=== PATIENT | female | born 1950 | race Caucasian/White ===

== ENCOUNTER 2021-10-29 10:34 | Outpatient (CLI) | payer MEDICARE, SELFPAY ==
--- NOTE | ~2021-10-29 | XR_ITS ---
XR shoulder LT min 2V DATE: 10/29/2021 10:51 INDICATION: Left shoulder pain. Limited range of motion. No injury. TECHNIQUE: 4 views COMPARISON: None FINDINGS: There is diffuse osteopenia. No fracture or dislocation, periosteal reaction or bone destruction. Mild degenerative spurring at the left acromioclavicular joint. Degenerative spurring of the thoracic spine. Aortic arch calcification. IMPRESSION: Osteopenia Mild degenerative change of the left acromioclavicular joint Reviewed, dictated and finalized at location A.
== END 2021-10-29 10:35 | disposition home or self-care (01) ==
PROVIDERS: PCP Internal Medicine; Visit Provider Internal Medicine
DX: M19.012 Primary osteoarthritis, left shoulder (principal)
CPT/HCPCS: 73030

== ENCOUNTER 2021-11-01 10:09 | Observation (INO) | payer MEDICARE, SELFPAY ==
[2021-11-01] VITALS (16 sets, daily range): BP systolic 115–162; BP diastolic 51–95; PULSE 55–85; RESP 15–20; TEMP 36.1–36.9; O2SAT 97–100; BMI 30.2
--- NOTE | ~2021-11-01 | XR_ITS ---
EXAMINATION: XR chest 2V DATE: 11/01/2021 10:37 INDICATION: Left chest pain. TECHNIQUE: Frontal and lateral views of the chest were obtained. COMPARISON: Chest 2 views 01/03/2015, CT abdomen and pelvis 11/16/2018 FINDINGS: The chest demonstrates clear lungs without pneumonia, pleural effusion, or pneumothorax. Th e heart size is normal. There are prominent paracardial fat pads. Surgical clips in the right upper q uadrant are likely from cholecystectomy. IMPRESSION: 1. No acute cardiopulmonary disease. Reviewed, dictated and finalized at location A.
--- NOTE | 2021-11-01 10:10 | ECG_ITS ---
Measurements Intervals [place] Rate: 65 P: -78 HI: 120 QRS: 6 QRSD: 99 T: 122 QT: 449 QTc: 469 Interpretive Statements BASELINE ARTIFACT RESULTS IN DIFFICULT INTERPRETATION SINUS RHYTHM ST DEVIATION AND MODERATE T-WAVE ABNORMALITY, CONSIDER ANTEROLATERAL ISCHEMIA [-0.1+ mV T WAVE IN V3-V6] COMPARED TO ECG 10/14/2018 08:47:17 T-WAVE INVERSION IS NOTED Electronically Signed On 11-01-2021 12:51:48 CDT by Greg Yoder M.D.
[2021-11-01] MEDS: ASPIRIN 81 MG CHEWABLE TABLET 324 MG PO (10:25)
[2021-11-01 10:29] LABS: Basophils Absolute Auto 0.1 K/mm3 (0.0-0.1); Basophils Percent Auto 0.9 % (0.2-1.2); Eosinophils Absolute Auto 0.1 K/mm3 (0-0.3); Eosinophils Percent Auto 1.5 % (0-4.4); Hematocrit 40.5 % (37.0-47.0); Immature Granulocyte Absolute 0.03 K/mm3 (0.00-0.031); Immature Granulocyte Percent A 0.3 % (0-0.5); Lymphocytes Absolute Auto 4.76 K/mm3 (0.9-3.2); Lymphocytes Percent Auto 51.3 % (18.3-44.2); Mean Corpuscular HGB Conc 32.1 g/dl (32-36); Mean Corpuscular Hemoglobin 28.4 pg (26-34); Mean Corpuscular Volume 88.6 fl (80-100); Mean Platelet Volume 10.7 fl (7.4-10.4); Monocytes Absolute Auto 0.8 K/mm3 (0.1-0.6); Monocytes Percent Auto 9.1 % (2.6-8.5); Neutrophils Absolute Auto 3.4 K/mm3 (1.3-6.7); Neutrophils Percent Auto 36.9 % (45.5-73.1); Platelet Count Result 312 k/mm3 (150-375); Red Blood Count 4.57 M/mm3 (4.2-5.4); Red Cell Distribution Width 13.6 % (11.5-14.5); White Blood Count 9.3 K/mm3 (4.5-10.0)
[2021-11-01 10:40] LABS: Alanine Aminotransferase 28 U/L (4-35); Albumin Level 3.7 g/dL (3.5-5.1); Alkaline Phosphatase 53 U/L (38-126); Anion Gap 11 mmol/L (8-16); Aspartate Amino Transferase 43 U/L (14-36); Bilirubin,Total 0.4 mg/dL (0.2-1.3); Blood Urea Nitrogen 11 mg/dL (7-17); Carbon Dioxide 22 mmol/L (22-30); Chloride 104 mmol/L (98-107); Estimated CRCL calculation 67 ml/min; Estimated Glomerular Filt Rate > 60; Glucose 269 mg/dL (65-110); Lipase 127 U/L (23-300); Potassium 3.5 mmol/L (3.4-5.0); Sodium 137 mmol/L (137-145)
[2021-11-01 10:41] LABS: INR 1.1; Prothrombin Time 13.5 Seconds (11.1-14.7)
[2021-11-01 10:42] LABS: Partial Thromboplastin Time 23.3 SECONDS (22.3-36.8)
[2021-11-01 10:54] LABS: Troponin I 0.083 ng/mL (0.000-0.034)
--- NOTE | 2021-11-01 11:23 | ED.CHESTPAIN ---
HPI - Chest Pain General Chief Complaint: Chest Pain Stated Complaint: chest pain Time Seen by Provider: 11/01/21 10:45 Source: patient Mode of arrival: ambulatory Limitations: no limitations History of Present Illness HPI narrative: Patient is a 70-year-old female complaining of chest pain, left chest, tightness, was 7 out of 10 earlier, currently has no pain, radiating to left arm, intermittent, accompanied by nausea started 2 weeks ago. Patient denies any shortness of breath, abdominal pain, vomiting, diaphoresis, fever or chills. Related Data Home Medications Medication Instructions Recorded Confirmed propranolol 10 mg tablet 20 mg PO Q12H tablet 09/08/19 11/01/21 venlafaxine 75 mg capsule,extended 75 mg PO TID cap 09/08/19 11/01/21 release 24 hr bupropion HCl 300 mg 24 hr tablet, 300 mg PO QAM 11/28/20 11/01/21 extended release oxybutynin chloride 10 mg 10 mg PO DAILY 11/28/20 11/01/21 tablet,extended release 24 hr Allergies Allergy/AdvReac Type Severity Reaction Status Date / Time No Known Allergies Allergy Verified 11/01/21 09:36 Review of Systems Review of Systems: All systems reviewed & are unremarkable except as noted in HPI and below Constitutional: Constitutional: Denies body ache(s), Denies chills, Denies excessive sweating, Denies fatigue, Denies fever(s), Denies headache(s), Denies lethargy, Denies malaise, Denies weakness and Denies weight loss Eyes: Eyes: Denies blurry vision, Denies change in vision and Denies loss of vision ENT: Denies dizziness, Denies ear discharge, Denies headache(s), Denies lip swelling, Denies epistaxis, Denies nasal congestion, Denies neck pain, Denies throat swelling and Denies tongue swelling Cardiovascular: Cardiovascular: Denies diaphoresis, Denies rapid heart rate, Denies edema, Denies irregular heart rhythm, Denies lightheadedness, Denies palpitations, Denies dyspnea and Denies dyspnea on exertion Respiratory: Respiratory: Denies chest congestion, Denies cough, Denies hemoptysis, Denies dyspnea and Denies dyspnea on exertion Gastrointestinal: Gastrointestinal: Denies abdominal pain, Denies melena, Denies hematochezia, Denies diarrhea, Denies nausea, Denies vomiting and Denies hematemesis Musculoskeletal: Musculoskeletal: Denies abnormal gait, Denies deformity, Denies joint swelling, Denies limited range of motion, Denies neck pain and Denies numbness Neurologic: Denies Abnormal speech present, Denies abnormal gait, Denies confusion, Denies dizziness, Denies headache(s), Denies focal weakness, Denies loss of vision, Denies numbness, Denies Other visual disturbances, Denies Sensory deficit (Neuro) and Denies weakness Psychiatric: Psychiatric: Denies confusion, Denies depression, Denies auditory hallucinations, Denies homicidal ideation and Denies suicidal ideation Endocrine: Endocrine: Denies cold intolerance, Denies excessive sweating, Denies fatigue, Denies heat intolerance and Denies palpitations Hematologic/Lymphatic: Hematologic/Lymphatic: Denies easy bleeding and Denies easy bruising Allergic/Immunologic: Allergic/Immunologic: Denies lip swelling, Denies throat swelling and Denies tongue swelling PMFSH Surgical History Surgical History H/O cataract removal with insertion of prosthetic lens Family History Family History Mother Patient's mother is Family history of malignant neoplasm Father Patient's father is Social History Social History Smoking packs per day: 2 Smoking cigarettes per day: 40.0 Years smoked: 20 Smoking pack-years: 40.00 Smoking status: Never smoker Smoking end date: 07/06/06 Alcohol intake: never Comments Past medical history: Diabetes Exam Const: General: cooperative, healthy appearing, comfortable, no acute distress
[2021-11-01 13:40] LABS: Troponin I 0.077 ng/mL (0.000-0.034)
[2021-11-01 13:41] LABS: SARS-CoV-2 RNA PCR Negative
--- NOTE | 2021-11-01 14:00 | PM.IMHP ---
H&P: HPI History of Present Illness Date/Time: 11/01/21 14:00 <Nati Bishop PA-C - Last Filed: 11/01/21 17:24> Chief Complaint: Chest pain. <Nati Bishop PA-C - Last Filed: 11/01/21 17:24> Narrative: This is a 70-year-old female with history of kidney stones, GERD, diabetes, hypothyroidism, and essential tremor who presented to the emergency department for evaluation of chest pain. She saw her primary care provider today for evaluation of left shoulder pain that has been an ongoing issue for about a year's time though it has gotten worse over the past couple of weeks. She has a difficult time describing what she feels and simply refers to it as ?pain.? This pain seems to start in the left shoulder and at times it radiates down the left arm and hand and occasionally to the left scapula and left anterior chest. More recently the pain seems to occur when I am up and about? and at times it is accompanied by dizziness and nausea. It is not necessarily improved with rest however she did take an old narcotic that was prescribed a couple of years ago which seemed to help. Her primary care provider sent her to the ER today given her risk factors where she was found to have a slightly elevated troponin which has remained flat. EKG showed T-wave inversion in the anterolateral leads and she is being admitted in this setting. She has no known history of coronary artery disease and believes it has been over 5 years since her last stress test which was reportedly unremarkable. At the time my evaluation she has no current chest pain or complaints. <Nati Bishop PA-C - Last Filed: 11/01/21 17:24> Review of Systems Review of Systems: Twelve systems were reviewed. No fever, chills, or sweats. She denies cold and flu symptoms. No vertigo. No sick contacts. No pleuritic pain or palpitations. No orthopnea, paroxysmal nocturnal dyspnea, or lower extremity edema. She frequently has nausea and vomiting with suspected gastroparesis for which she has been seen by GI extensively. She admits that she does not check her glucose at home and there has been some documentation question her compliance with her medications as well. No blurry vision, polydipsia, or polyuria. She denies recent fall and injury. Except as documented, all other systems were reviewed and are negative. <Nati Bishop PA-C - Last Filed: 11/01/21 17:24> [facility] Past Medical History Medical History: Medical History (Updated 11/01/21 @ 17:22 by Nati Bishop PA-C) Chronic nausea Depression Essential tremor Gastro-esophageal reflux disease without esophagitis Gastroparesis History of colon polyps Hypothyroidism MRSA infection Other hyperlipidemia Type 2 diabetes mellitus Vitamin D deficiency, unspecified <Nati Bishop PA-C - Last Filed: 11/01/21 17:24> Surgical History Surgical History: Surgical History (Updated 11/01/21 @ 13:17 by Nati Bishop PA-C) History of cataract extraction with lens replacement History of cholecystectomy History of colonoscopy Diverticular disease noted in 2010. Benign colon polyps in 2018. History of esophagogastroduodenoscopy Hiatal hernia, gastritis, multiple fundic polyps. History of hernia repair (10/2018) Incarcerated ventral hernia repair with mesh. History of tubal ligation <Nati Bishop PA-C - Last Filed: 11/01/21 17:24> Family History Family History: Family History Mother Family history of malignant neoplasm Patient's mother is Father Patient's father is Cerebrovascular accident Asthma History of blood clots Diabetes mellitus <Nati Bishop PA-C - Last Filed: 11/01/21 17:24> Social History Social History: Social History (Updated 11/01/21 @ 17:17 by Nati Bishop PA-C) Social History: Surrogate decision maker: Kenroy Castanon, spouse. Code status: Full co
--- NOTE | 2021-11-01 14:51 | PM.CNCAR ---
Assessment and Plan Additional Plan This is a 70-year-old lady without prior history of overt coronary artery disease who has been having some left shoulder pain into the arm and into the scapular and chest region for about a year. The symptoms are more problematic recently and so she has been admitted to the hospital after being sent to the emergency room. She does have some anterolateral T-wave inversion but no prior ECGs are available for comparison. Troponin levels are slightly out of normal range but flat. I am going to start low-dose aspirin, metoprolol and rosuvastatin at this time. Because of her diabetes, symptoms, ECG findings and troponin levels I believe she should undergo a coronary angiogram. This will presumably occur on Thursday unless she becomes unstable enough to warrant angiography over the weekend Greg Yoder MD [facility] History of Present Illness History of Present Illness Consult date/time: 11/01/21 14:51 Consult reason: chest pain Reason For Visit: Chest pain/elevated troponin Narrative: This is a 70-year-old lady I am seeing at the request of the hospitalist because of left shoulder and chest discomfort. She is being seen in the emergency room because she is waiting for a bed upstairs and IMU as the decision has been made to admit her to the hospital. She went to see her primary care physician today because of some left shoulder pain which has been bothering her for about a year but was been worse in the last 1-2 weeks. She says that the discomfort seems to come and go when starts in the left shoulder region and that at times radiates into the left arm into the region of the left scapula and sometimes around to the left side of chest. The discomfort is not related to physical activity such as walking distances or climbing stairs. She has not noticed any aggravating or alleviating factors. Because it is more frequent and more problematic in the last week or so she went to her physician's office today. According to their notes she has diabetes for which she has been noncompliant with evaluation and treatment and so they thought she was at high enough risk and advised her to come to the emergency room from the office. The patient was seen in the emergency room her electrocardiogram shows a sinus mechanism with anterior lateral T-wave inversion. There are no prior ECGs available in the record for comparison. Her troponin levels are slightly elevated but flat at 0.8 and 0.7. In she is not having chest pain at this time she states that she took a pain pill of some sort that her had prescribed before she left her home to come into the office to be seen earlier today since she took that pill she is no longer having any symptoms. Her medical regimen consists of glipizide, Synthroid, oxybutynin, low-dose of propranolol, sumatriptan and venlafaxine. She states that she has had a previous cholecystectomy but no other serious illnesses. Review of Systems Constitutional: Constitutional: Reports no additional constitutional complaints Eyes: Eyes: Reports no additional eye complaints ENT: Reports system reviewed and no additional complaints, except as documented Cardiovascular: Cardiovascular: Reports as per HPI Respiratory: Respiratory: Reports no additional respiratory complaints Gastrointestinal: Gastrointestinal: Reports no additional gastrointestinal complaints Musculoskeletal: Musculoskeletal: Reports as per HPI Integumentary/Breasts: Skin/Breast: Reports system reviewed and no additional complaints, except as docu Neurologic: Reports system reviewed and no additional complaints, except as documented Endocrine: Endocrine: Reports no additional endocrine complaints Hematologic/Lymphatic: Hematologic/Lymphatic: Reports no additional hematologic/lymphatic complaints Allergic/Immunologic: Allergic/Immunologic: Reports no additional allergic/immunologic complaints PMFSH Past Medical History Medical History
--- NOTE | 2021-11-01 15:09 | ADMGEN ---
This patient, Brittaney Castanon, was admitted to IMU Room 205-01. Patient/family oriented to hospital policies and general routines including ID bracelet, bed and alarms, visiting hours, pain management, procedures, bathroom and other care routines, personal items, smoking policy, room service/diet, and visiting hours. Information on how to activate the Rapid Response Team has been discussed. Patient/Family are encouraged to report perceived risks to care and to ask questions if they do not understand what they are told or what they should do.
[2021-11-01 15:34] LABS: Cholesterol 226 mg/dL (0-200); HDL Direct 42 mg/dL; Triglycerides 224 mg/dL (<150)
[2021-11-01 15:45] LABS: LDL Cholesterol Direct 149 mg/dL
[2021-11-01 16:59] LABS: Troponin I 0.071 ng/mL (0.000-0.034)
[2021-11-01 17:34] LABS: Glucose Point of Care 176 mg/dl (65-105)
[2021-11-01 17:48] LABS: Hemoglobin A1C 8.4 % (<5.7)
[2021-11-01] MEDS: ACETAMINOPHEN 500 MG TABLET 1000 MG PO (20:32)
[2021-11-01] MEDS: diphenhydrAMINE HCl CAP 25 MG CAPSULE 50 MG PO (20:33)
[2021-11-01] MEDS: PROPRANOLOL HCL 10 MG TABLET PO (20:34)
[2021-11-01] MEDS: PANTOPRAZOLE 40 MG TABLET PO (20:34)
[2021-11-01] MEDS: traZODone HCL 50 MG TABLET 100 MG PO (20:34)
[2021-11-01 20:37] LABS: Glucose Point of Care 241 mg/dl (65-105)
[2021-11-02] VITALS (15 sets, daily range): BP systolic 100–147; BP diastolic 62–85; PULSE 51–70; RESP 16–20; TEMP 35.9–36.7; O2SAT 98–100
[2021-11-02 05:16] LABS: Anion Gap 7 mmol/L (8-16); Blood Urea Nitrogen 11 mg/dL (7-17); Calcium 7.9 mg/dL (8.4-10.2); Carbon Dioxide 26 mmol/L (22-30); Chloride 106 mmol/L (98-107); Estimated CRCL calculation 66 ml/min; Estimated Glomerular Filt Rate > 60; Glucose 148 mg/dL (65-110); Magnesium 1.2 mg/dL (1.6-2.3); Potassium 2.9 mmol/L (3.4-5.0); Sodium 139 mmol/L (137-145)
[2021-11-02 06:17] LABS: Thyroid Stimulating Hormone Reflex 0.653 uIU/mL (0.465-4.68)
[2021-11-02] MEDS: LEVOTHYROXINE SODIUM 125 MCG TABLET PO (06:29)
[2021-11-02 07:31] LABS: Glucose Point of Care 145 mg/dl (65-105)
--- NOTE | 2021-11-02 09:02 | PM.PNCARD ---
Progress Note: A&P Assessment and Plan (1) Acute coronary syndrome: Code(s): I24.9 - Acute ischemic heart disease, unspecified Status: Acute Assessment and Plan: Some chest discomfort, elevated troponins and EKG changes suggestive of ischemia/acute coronary syndrome Started on aspirin, rosuvastatin and changing propranolol (takes for tremor) to metoprolol Repeat EKG Cardiac catheterization on Thursday (2) Hypokalemia: Code(s): E87.6 - Hypokalemia Status: Acute Assessment and Plan: Admitted with low potassium and magnesium, supplemented Had diarrhea prior to admission, resolved, but which may account for her electrolyte imbalance Check potassium and magnesium levels (3) Hyperlipidemia associated with type 2 diabetes mellitus: Code(s): E11.69 - Type 2 diabetes mellitus with other specified complication; E78.5 - Hyperlipidemia, unspecified Status: Acute Assessment and Plan: High cholesterol and triglycerides on admission Started on rosuvastatin Subjective Date/time seen: 11/02/21 09:02 Interval history: Follow-up for chest pain 11/01/2021:This is a 70-year-old lady without prior history of overt coronary artery disease who has been having some left shoulder pain into the arm and into the scapular and chest region for about a year. The symptoms are more problematic recently and so she has been admitted to the hospital after being sent to the emergency room. She does have some anterolateral T-wave inversion but no prior ECGs are available for comparison. Troponin levels are slightly out of normal range but flat. I am going to start low-dose aspirin, metoprolol and rosuvastatin at this time. Because of her diabetes, symptoms, ECG findings and troponin levels I believe she should undergo a coronary angiogram. This will presumably occur on Thursday unless she becomes unstable enough to warrant angiography over the weekend Date of service: 11/02/2021: Feeling well today, injuring her breakfast, no further chest or arm discomfort. Relates that she had diarrhea for a week or so prior to admission. Takes propranolol for her tremor. Review of Systems Constitutional: Constitutional: Denies fatigue Eyes: Eyes: Denies no additional eye complaints ENT: Denies epistaxis and Denies nasal congestion Cardiovascular: Cardiovascular: Denies chest pain, Denies pedal edema and Denies lightheadedness Respiratory: Respiratory: Denies dyspnea Gastrointestinal: Gastrointestinal: Denies abdominal pain and Denies constipation Genitourinary: Genitourinary: Denies hematuria Musculoskeletal: Musculoskeletal: Reports no additional musculoskeletal complaints Integumentary/Breasts: Skin/Breast: Denies rash Neurologic: Denies confusion Psychiatric: Psychiatric: Reports no additional psychiatric complaints Exam Narrative: Pleasant and friendly, enjoying her breakfast Const: General: comfortable and no acute distress HENMT: General nose exam: no epistaxis Mouth: Yes moist mucous membranes Eyes: EOM: EOMs intact bilaterally Neck: Neck: supple Resp: Effort & Inspection: normal respiratory effort Auscultation: clear to auscultation bilaterally Cardio: Rate: regular rate Rhythm: regular rhythm Heart sounds: no murmurs GI: GI Palp: Yes Soft to palpation and No Tenderness to palpation present (GI) Skin: General skin exam: normal color and no rashes or lesions noted Neuro: Cognition (Neuro): normal cognition Speech: normal speech Extrem: General: no edema and no pedal edema Psych: Mental Status: mental status grossly normal Affect: normal affect Objective Data Vital Signs Vital Signs: Vital Signs - 24 hr 11/01/21 10:12 11/01/21 10:56 11/01/21 12:00 Temperature 97.9 F 97.8 F Pulse Rate 66 56 L 55 L Respiratory Rate 16 18 15 Blood Pressure 162/95 H 115/73 134/80 Pulse Oximetry 98 98 98 11/01/21 12:42 11/01/21 13:56 11/01/21 14:40 Temperature 97.6
--- NOTE | 2021-11-02 09:07 | ECG_ITS ---
Measurements Intervals [place] Rate: 59 P: -65 [place]: 125 QRS: -3 QRSD: 92 T: 131 QT: 439 QTc: 438 Interpretive Statements SINUS BRADYCARDIA ST DEVIATION AND MODERATE T-WAVE ABNORMALITY, CONSIDER ANTEROLATERAL ISCHEMIA [-0.1+ mV T WAVE IN V3-V6] COMPARED TO ECG 11/01/2021 10:16:54 NO SIGNIFICANT CHANGES Electronically Signed On 11-02-2021 13:42:42 CDT by Selena Malin M.D.
[2021-11-02] MEDS: VENLAFAXINE HCL XR 75 MG CAP.ER.24H PO (09:34)
[2021-11-02] MEDS: glipiZIDE XL 5 MG TABCR PO (09:34)
[2021-11-02] MEDS: ASPIRIN 81 MG ENTERIC TABLET PO (09:34)
[2021-11-02] MEDS: POTASSIUM CHLORIDE INJ 40 MEQ in SODIUM CHLORIDE 0.9% IV 500 ML 130 MEQ IVPB (09:34)
[2021-11-02] MEDS: MAGNESIUM SULFATE 3GM/D5W100ML 3 GM/100 ML BAG IVPB (09:34)
[2021-11-02] MEDS: ROSUVASTATIN 10 MG TABLET PO (09:35)
[2021-11-02] MEDS: POTASSIUM CHLORIDE 20 MEQ PACKET (FOR LIQUID) PO ×2 (09:37→17:09)
[2021-11-02] MEDS: ENOXAPARIN 40 MG/0.4 ML SYRINGE SUB-Q (09:40)
[2021-11-02 09:45] LABS: Anion Gap 9 mmol/L (8-16); Blood Urea Nitrogen 11 mg/dL (7-17); Calcium 8.2 mg/dL (8.4-10.2); Carbon Dioxide 24 mmol/L (22-30); Chloride 107 mmol/L (98-107); Estimated CRCL calculation 66 ml/min; Estimated Glomerular Filt Rate > 60; Glucose 203 mg/dL (65-110); Potassium 3.2 mmol/L (3.4-5.0); Sodium 140 mmol/L (137-145)
[2021-11-02 09:46] LABS: Magnesium 1.3 mg/dL (1.6-2.3)
--- NOTE | 2021-11-02 10:22 | PCCCNOTE ---
On 11/02/21, the student, [Daija Soliman], provided care and completed [facility] documentation on this patient. I have reviewed the student's documentation and agree with the findings.
--- NOTE | 2021-11-02 11:21 | PM.IMPN ---
Progress Note: A&P Assessment and Plan (1) Chest pain: Code(s): R07.9 - Chest pain, unspecified Status: Acute Assessment and Plan: Presented with left anterior chest pain radiating from the left shoulder and down the arm. Troponins mildly elevated with flat trend. Noted to have anterolateral T-wave inversion. Appreciate cardiology consultation Plan for coronary angiogram on Thursday given EKG findings, risk factors, symptoms Continue aspirin, rosuvastatin, metoprolol (2) Abnormal EKG: Code(s): R94.31 - Abnormal electrocardiogram [ECG] [EKG] Status: Acute Assessment and Plan: See above (3) Elevated troponin: Code(s): R77.8 - Other specified abnormalities of plasma proteins Status: Acute Assessment and Plan: See above (4) Type 2 diabetes mellitus: Code(s): E11.9 - Type 2 diabetes mellitus without complications Status: Acute Assessment and Plan: A1c is 8.4 Continue Accu-Cheks, moderate does sliding scale insulin, hypoglycemic protocol Continue home glipizide Monitor glucose trends adjust insulin regimen as needed (5) Hypothyroidism: Code(s): E03.9 - Hypothyroidism, unspecified Status: Acute Assessment and Plan: TSH is within normal limits Continue levothyroxine (6) Hypokalemia: Code(s): E87.6 - Hypokalemia Status: Acute Assessment and Plan: Potassium 2.9 today. Patient reports recent diarrhea which could be the etiology for this Administer 40 mEq IV KCl Schedule p.o. potassium 20 mEq b.i.d. (7) Hypomagnesemia: Code(s): E83.42 - Hypomagnesemia Status: Acute Assessment and Plan: Magnesium is 1.2 Administer 3 g IV magnesium sulfate and continue to monitor closely Subjective Date/time seen: 11/02/21 11:21 Interval history: Date of service: 11/02/2021 Brittaney Gale is a 70-year-old female with a history of type 2 diabetes mellitus, hypothyroidism, hyperlipidemia, essential tremor who is seen in follow-up for chest pain. The patient tells that she was directed to the ED by her PCP after having complaints of left shoulder pain that radiated to the chest and down the arm. She described her shoulder pain as constant sharp pain which she rated as 10/10. This was associated with nausea. At this time, she states her shoulder comfort is not too bad, discharged a little. She rates it as 6-7/10. She denies any pain across her chest. No pain down the arm. Denies dizziness, lightheadedness, palpitations, shortness of breath. No cough. Denies nausea, vomiting, fever, chills. Her appetite is good. Reports regular bowel movements and denies urinary symptoms. Review of Systems Review of Systems: All systems reviewed & are unremarkable except as noted in HPI and below Exam Narrative: General: Obese, well-appearing 70 year-old female, sitting up in bed, comfortable, NARD Neuro: awake, alert and oriented x4, speech clear, no focal neuro deficits noted HEENMT: normocephalic, atraumatic, EOMI, sclerae anicteric, moist oral mucosa Respiratory: clear to auscultation bilaterally, nonlabored breathing Cardio: regular rate, regular rhythm with S1-S2 Abdomen: Protuberant, normoactive bowel sounds, soft, nontender to palpation Extremities: no edema, erythema, or tenderness to palpation, DP pulses 2+ bilaterally Skin: no rashes or lesions, warm and dry Psych: appropriate mood and affect, judgment and insight intact Objective Data Vital Signs Vital Signs: Vital Signs - 24 hr 11/01/21 12:00 11/01/21 12:42 11/01/21 13:56 Temperature 97.8 F 97.6 F 98.3 F Pulse Rate 55 L 55 L 59 L Respiratory Rate 15 16 16 Blood Pressure 134/80 131/56 L 132/58 L Pulse Oximetry 98 98 97 11/01/21 14:40 11/01/21 14:41 11/01/21 15:26 Temperature 97.3 F L 98.5 F Pulse Rate 60 85 Respiratory Rate 16 15 Blood Pressure 137/61 147/69 H Pulse Oximetry 100 100 11/01/21 15
[2021-11-02] MEDS: METOPROLOL SUCCINATE EXT REL 25 MG TABCR PO (11:30)
[2021-11-02] MEDS: buPROPion HCL SR (12 HR) 150 MG TAB 300 MG PO (11:30)
[2021-11-02 12:01] LABS: Glucose Point of Care 279 mg/dl (65-105)
[2021-11-02] MEDS: INSULIN ASPART (*BKC) 100 UNITS/ML SUB-Q (12:54)
[2021-11-02 17:11] LABS: Glucose Point of Care 142 mg/dl (65-105)
[2021-11-02 19:56] LABS: Glucose Point of Care 206 mg/dl (65-105)
[2021-11-02] MEDS: traZODone HCL 50 MG TABLET 100 MG PO (20:45)
[2021-11-02] MEDS: diphenhydrAMINE HCl CAP 25 MG CAPSULE 50 MG PO (20:45)
[2021-11-02] MEDS: PANTOPRAZOLE 40 MG TABLET PO (20:45)
[2021-11-02] MEDS: ACETAMINOPHEN 500 MG TABLET 1000 MG PO (20:45)
[2021-11-03] VITALS (18 sets, daily range): BP systolic 117–138; BP diastolic 54–75; PULSE 51–104; RESP 16–24; TEMP 36.4–37.1; O2SAT 90–99
[2021-11-03 05:13] LABS: Anion Gap 5 mmol/L (8-16); Blood Urea Nitrogen 9 mg/dL (7-17); Carbon Dioxide 24 mmol/L (22-30); Chloride 111 mmol/L (98-107); Estimated CRCL calculation 66 ml/min; Estimated Glomerular Filt Rate > 60; Glucose 126 mg/dL (65-110); Potassium 3.7 mmol/L (3.4-5.0); Sodium 140 mmol/L (137-145)
[2021-11-03] MEDS: LEVOTHYROXINE SODIUM 125 MCG TABLET PO (06:45)
[2021-11-03 07:20] LABS: Glucose Point of Care 127 mg/dl (65-105)
[2021-11-03] MEDS: ASPIRIN 81 MG ENTERIC TABLET PO (09:00)
[2021-11-03] MEDS: ROSUVASTATIN 10 MG TABLET PO (09:00)
[2021-11-03] MEDS: buPROPion HCL SR (12 HR) 150 MG TAB 300 MG PO ×2 (09:00→20:56)
[2021-11-03] MEDS: glipiZIDE XL 5 MG TABCR PO (09:00)
[2021-11-03] MEDS: POTASSIUM CHLORIDE 20 MEQ PACKET (FOR LIQUID) PO ×2 (09:00→17:28)
[2021-11-03] MEDS: VENLAFAXINE HCL XR 75 MG CAP.ER.24H PO (09:00)
[2021-11-03] MEDS: ENOXAPARIN 40 MG/0.4 ML SYRINGE SUB-Q (09:00)
[2021-11-03] MEDS: METOPROLOL SUCCINATE EXT REL 25 MG TABCR PO (09:05)
--- NOTE | 2021-11-03 11:16 | PM.IMPN ---
Progress Note: A&P Assessment and Plan (1) Chest pain: Code(s): R07.9 - Chest pain, unspecified Status: Acute Assessment and Plan: Presented with left anterior chest pain radiating from the left shoulder and down the arm. Troponins mildly elevated with flat trend. Noted to have anterolateral T-wave inversion. Appreciate cardiology consultation Plan for coronary angiogram on Thursday given EKG findings, risk factors, symptoms Continue aspirin, rosuvastatin, metoprolol (2) Abnormal EKG: Code(s): R94.31 - Abnormal electrocardiogram [ECG] [EKG] Status: Acute Assessment and Plan: See above (3) Elevated troponin: Code(s): R77.8 - Other specified abnormalities of plasma proteins Status: Acute Assessment and Plan: See above (4) Type 2 diabetes mellitus: Code(s): E11.9 - Type 2 diabetes mellitus without complications Status: Acute Assessment and Plan: A1c is 8.4. Blood sugars generally well controlled Continue Accu-Cheks, moderate does sliding scale insulin, hypoglycemic protocol Continue home glipizide Monitor glucose trends and adjust insulin regimen as needed (5) Hypothyroidism: Code(s): E03.9 - Hypothyroidism, unspecified Status: Acute Assessment and Plan: TSH is within normal limits Continue levothyroxine (6) Hypokalemia: Code(s): E87.6 - Hypokalemia Status: Acute Assessment and Plan: Resolved. Potassium 3.7 today Continue was scheduled potassium supplementation and monitor BMP (7) Hypomagnesemia: Code(s): E83.42 - Hypomagnesemia Status: Acute Assessment and Plan: Resolved. Magnesium 2.0 today Continue to monitor Subjective Date/time seen: 11/03/21 11:16 Interval history: Date of service: 11/02/2021 Brittaney Gale is a 70-year-old female with a history of type 2 diabetes mellitus, hypothyroidism, hyperlipidemia, essential tremor who is seen in follow-up for chest pain. She is feeling well today. At this time she has shoulder pain, chest pain, arm pain, jaw pain. She is able to get up and ambulate to the restroom. Denies any issues with voiding. Reports last bowel movement was 3 days ago. Denies dizziness, lightheadedness, weakness, nausea, vomiting. Denies shortness of breath, cough, chest pain, palpitations. Review of Systems Review of Systems: All systems reviewed & are unremarkable except as noted in HPI and below Exam Narrative: General: Obese, well-appearing 70 year-old female, sitting up in bed, comfortable, NARD Neuro: awake, alert and oriented x4, speech clear, no focal neuro deficits noted HEENMT: normocephalic, atraumatic, EOMI, sclerae anicteric, moist oral mucosa Respiratory: clear to auscultation bilaterally, nonlabored breathing Cardio: regular rate, regular rhythm with S1-S2 Abdomen: Protuberant, normoactive bowel sounds, soft, nontender to palpation Extremities: no edema, erythema, or tenderness to palpation, DP pulses 2+ bilaterally Skin: no rashes or lesions, warm and dry Psych: appropriate mood and affect, judgment and insight intact Objective Data Vital Signs Vital Signs: Vital Signs - 24 hr 11/02/21 11:30 11/02/21 12:00 11/02/21 14:00 Temperature 97.9 F Pulse Rate 70 67 59 L Respiratory Rate 16 Blood Pressure 147/62 H Pulse Oximetry 98 11/02/21 16:00 11/02/21 18:00 11/02/21 20:00 Temperature 98.1 F 96.7 F L Pulse Rate 56 L 65 62 Respiratory Rate 20 20 Blood Pressure 142/79 H 134/70 Pulse Oximetry 98 99 11/02/21 21:56 11/02/21 23:05 11/03/21 00:00 Temperature 97.8 F Pulse Rate 56 L 56 L 56 L Respiratory Rate 20 Blood Pressure 131/70 Pulse Oximetry 99 11/03/21 02:00 11/03/21 03:33 11/03/21 04:00 Temperature 97.6 F Pulse Rate 52 L 51 L 52 L Respiratory Rate 20 Blood Pressure 126/65 Pulse Oximetry 99 11/03/21 06:00 11/03/21 06:41 11/03/21 07:49
[2021-11-03 11:40] LABS: Glucose Point of Care 301 mg/dl (65-105)
--- NOTE | 2021-11-03 12:22 | PM.PNCARD ---
Progress Note: A&P Assessment and Plan (1) Acute coronary syndrome: Code(s): I24.9 - Acute ischemic heart disease, unspecified Status: Acute Assessment and Plan: Some chest discomfort, elevated troponins and EKG changes suggestive of ischemia/acute coronary syndrome Started on aspirin, rosuvastatin and changing propranolol (takes for tremor) to metoprolol. Heart rate is running 51-67, optimal for this situation. Since the patient has had further episodes of angina I will start her on a heparin drip today. Cardiac catheterization on Thursday. Reviewed the procedure in detail with patient including risks. Reviewed possible risks and complications with patient including breathing problems, bleeding problems, blood vessel problems, unanticipated surgery, allergic reactions, kidney problems, CVA, GA, and among others. Discussed possibility of stenting and possible need for DAPT. Discussed the possibility that if DAPT is interrupted stent thrombosis can occur resulting in heart attack and . Patient understands risks and desires to proceed. (2) Hypokalemia: Code(s): E87.6 - Hypokalemia Status: Acute Assessment and Plan: Admitted with low potassium and magnesium, supplemented Had diarrhea prior to admission, resolved, but which may account for her electrolyte imbalance Potassium and magnesium levels have improved. (3) Hyperlipidemia associated with type 2 diabetes mellitus: Code(s): E11.69 - Type 2 diabetes mellitus with other specified complication; E78.5 - Hyperlipidemia, unspecified Status: Acute Assessment and Plan: High cholesterol and triglycerides on admission Started on rosuvastatin Subjective Date/time seen: 11/03/21 12:22 Interval history: Follow-up for chest pain 11/01/2021:This is a 70-year-old lady without prior history of overt coronary artery disease who has been having some left shoulder pain into the arm and into the scapular and chest region for about a year. The symptoms are more problematic recently and so she has been admitted to the hospital after being sent to the emergency room. She does have some anterolateral T-wave inversion but no prior ECGs are available for comparison. Troponin levels are slightly out of normal range but flat. I am going to start low-dose aspirin, metoprolol and rosuvastatin at this time. Because of her diabetes, symptoms, ECG findings and troponin levels I believe she should undergo a coronary angiogram. This will presumably occur on Thursday unless she becomes unstable enough to warrant angiography over the weekend Date of service: 11/02/2021: Feeling well today, injuring her breakfast, no further chest or arm discomfort. Relates that she had diarrhea for a week or so prior to admission. Takes propranolol for her tremor. Date of service 11/03/2021: Patient reports a mild episode of chest and shoulder discomfort yesterday, and then another more significant episode today while she was washing up. She heard up and got back in bed and it resolved. EKG 11/02/2021 shows sinus rhythm with T-wave inversion from V1 through V4. Review of Systems Constitutional: Constitutional: Denies fatigue Eyes: Eyes: Denies no additional eye complaints ENT: Denies epistaxis and Denies nasal congestion Cardiovascular: Cardiovascular: Reports chest pain, Denies pedal edema, Denies lightheadedness and Denies dyspnea Respiratory: Respiratory: Denies dyspnea Gastrointestinal: Gastrointestinal: Denies abdominal pain and Denies constipation Genitourinary: Genitourinary: Denies hematuria Musculoskeletal: Musculoskeletal: Reports no additional musculoskeletal complaints Integumentary/Breasts: Skin/Breast: Denies rash Neurologic: Denies confusion Psychiatric: Psychiatric: Reports no additional psychiatric complaints and Denies confusion Endocrine: Endocrine: Denies fatigue Exam Narrative: Pleasant and friendly, enjoyin
[2021-11-03] MEDS: INSULIN ASPART (*BKC) 100 UNITS/ML SUB-Q (12:59)
[2021-11-03] MEDS: HEPARIN SOD/D5W 100 UNITS/ML 25,000 UNITS/250 ML BAG 9 UNITS IV CONT (14:24)
[2021-11-03] MEDS: HEPARIN SODIUM 5,000 UNITS/ML VIAL 4000 UNITS IV PUSH ×2 (14:26→20:34)
[2021-11-03 17:06] LABS: Glucose Point of Care 130 mg/dl (65-105)
[2021-11-03 19:57] LABS: Glucose Point of Care 209 mg/dl (65-105)
[2021-11-03 20:27] LABS: Partial Thromboplastin Time 49.2 SECONDS (22.3-36.8)
[2021-11-03] MEDS: diphenhydrAMINE HCl CAP 25 MG CAPSULE 50 MG PO (20:56)
[2021-11-03] MEDS: traZODone HCL 50 MG TABLET 100 MG PO (20:56)
[2021-11-03] MEDS: ACETAMINOPHEN 500 MG TABLET 1000 MG PO (20:56)
[2021-11-03] MEDS: PANTOPRAZOLE 40 MG TABLET PO (20:56)
[2021-11-04] VITALS (17 sets, daily range): BP systolic 115–152; BP diastolic 56–88; PULSE 52–70; RESP 13–20; TEMP 35.9–36.6; O2SAT 95–100
[2021-11-04 03:19] LABS: Basophils Absolute Auto 0.1 K/mm3 (0.0-0.1); Basophils Percent Auto 0.6 % (0.2-1.2); Eosinophils Absolute Auto 0.2 K/mm3 (0-0.3); Eosinophils Percent Auto 1.4 % (0-4.4); Hematocrit 34.6 % (37.0-47.0); Hemoglobin 11.4 g/dL (12.0-15.0); Immature Granulocyte Absolute 0.03 K/mm3 (0.00-0.031); Immature Granulocyte Percent A 0.3 % (0-0.5); Lymphocytes Absolute Auto 5.97 K/mm3 (0.9-3.2); Lymphocytes Percent Auto 57.6 % (18.3-44.2); Mean Corpuscular HGB Conc 32.9 g/dl (32-36); Mean Platelet Volume 10.9 fl (7.4-10.4); Monocytes Absolute Auto 0.9 K/mm3 (0.1-0.6); Monocytes Percent Auto 8.5 % (2.6-8.5); Neutrophils Absolute Auto 3.3 K/mm3 (1.3-6.7); Neutrophils Percent Auto 31.6 % (45.5-73.1); Platelet Count Result 233 k/mm3 (150-375); Red Blood Count 3.93 M/mm3 (4.2-5.4); Red Cell Distribution Width 13.8 % (11.5-14.5); White Blood Count 10.4 K/mm3 (4.5-10.0)
[2021-11-04 03:33] LABS: Anion Gap 7 mmol/L (8-16); Blood Urea Nitrogen 9 mg/dL (7-17); Calcium 7.9 mg/dL (8.4-10.2); Carbon Dioxide 22 mmol/L (22-30); Chloride 108 mmol/L (98-107); Estimated CRCL calculation 66 ml/min; Estimated Glomerular Filt Rate > 60; Glucose 128 mg/dL (65-110); Magnesium 1.7 mg/dL (1.6-2.3); Potassium 3.8 mmol/L (3.4-5.0); Sodium 137 mmol/L (137-145)
[2021-11-04] MEDS: LEVOTHYROXINE SODIUM 125 MCG TABLET PO (06:22)
[2021-11-04 07:55] LABS: Glucose Point of Care 172 mg/dl (65-105)
--- NOTE | 2021-11-04 10:01 | WPDMODSED ---
Moderate Sedation Note-Pt Data Patient Data Diagnosis: Acute coronary syndrome Present Complaint: intermittent chest pain Procedure to be performed/Plan: left heart catheterization Allergies Allergy/AdvReac Type Severity Reaction Status Date / Time No Known Allergies Allergy Verified 11/01/21 09:36 Home Medications Medication Instructions Recorded Confirmed Type propranolol 10 mg tablet 10 mg PO Q12H tablet 09/08/19 11/01/21 History venlafaxine 75 mg capsule,extended 75 mg PO DAILY cap 09/08/19 11/01/21 History release 24 hr bupropion HCl 300 mg 24 hr tablet, 300 mg PO DAILY 11/28/20 11/02/21 History extended release oxybutynin chloride 10 mg 10 mg PO DAILY 11/28/20 11/01/21 History tablet,extended release 24 hr levothyroxine 125 mcg tablet 125 mcg PO DAILY #90 tablet 07/17/21 11/01/21 Rx glipizide 5 mg tablet, extended 5 mg PO DAILY #90 tablet 07/19/21 11/01/21 Rx release 24 hr diphenhydramine-acetaminophen 2 tablet PO 11/01/21 11/01/21 History [Acetaminophen PM] rabeprazole 20 mg PO 11/01/21 11/01/21 History sumatriptan succinate [Imitrex] See Rx Instructions PO .COMPLEX PRN 11/01/21 11/01/21 History trazodone 100 mg PO HS 11/01/21 11/01/21 History Current Medications: Active Medications Acetaminophen (Acetaminophen 500 Mg Tablet) 1,000 mg PO [facility] Stop: 12/01/21 20:59 Last Admin: 11/03/21 20:56 Dose: 1,000 mg Documented by: Aspirin (Aspirin 81 Mg Enteric Tablet) 81 mg PO QAM [facility] Last Admin: 11/03/21 09:00 Dose: 81 mg Documented by: Bupropion HCl (Bupropion Hcl Sr (12 Hr) 150 Mg Tab) 300 mg PO Q12HR [facility] Last Admin: 11/03/21 20:56 Dose: 300 mg Documented by: Dextrose (Dextrose 50% 25 Gm/50 Ml Syringe) 12.5 gm IV PUSH PRN PRN; Protocol PRN Reason: Hypoglycemia Diphenhydramine HCl (Diphenhydramine Hcl Cap 25 Mg Capsule) 50 mg PO [facility] Stop: 12/01/21 20:59 Last Admin: 11/03/21 20:56 Dose: 50 mg Documented by: Glipizide (Glipizide Xl 5 Mg Tabcr) 5 mg PO DAILY [facility] Last Admin: 11/03/21 09:00 Dose: 5 mg Documented by: Glucagon (Glucagon For Inj 1 Mg Vial) 1 mg IM PRN PRN; Protocol PRN Reason: Hypoglycemia Glucose (Glucose Oral Gel 15 Gm Of Glucse In 37.5 Gm Tube) 15 gm PO PRN PRN; Protocol PRN Reason: Hypoglycemia Heparin Sodium (Porcine) (Heparin Sodium 5,000 Units/Ml Vial) 4,000 units IV PUSH PRN PRN PRN Reason: aPTT less than 55 seconds Last Admin: 11/03/21 20:34 Dose: 4,000 units Documented by: Heparin Sodium (Porcine) (Heparin Sodium 5,000 Units/Ml Vial) 3,000 units IV PUSH PRN PRN PRN Reason: aPTT 55 - 70 seconds Dextrose (Dextrose 5% 1,000 Ml) 1,000 mls @ 100 mls/hr IVPB PRN PRN; Protocol PRN Reason: Hypoglycemia Heparin Sodium/Dextrose (Heparin Sodium/D5w 100 Units/Ml) 25,000 units in 250 mls @ 12 mls/hr IV CONT .[id number] [facility]; Protocol Last Titration: 11/04/21 03:37 Dose: 1,200 units/hr, 12 mls/hr Documented by: Sodium Chloride (Normal Saline Iv) 500 mls @ 100 mls/hr IV CONT .Q5H [facility] Insulin Aspart (Insulin Aspart (*Bkc) 100 Units/Ml) 3 - 6 units SUB-Q TIDWM [facility]; Protocol Last Admin: 11/04/21 08:00 Dose: Not Given Documented by: Levothyroxine Sodium (Levothyroxine Sodium 125 Mcg Tablet) 125 mcg PO DAILY@0630 [facility] Last Admin: 11/04/21 06:22 Dose: 125 mcg Documented by: Metoprolol Succinate (Metoprolol Succinate Ext Rel 25 Mg Tabcr) 25 mg PO QAM [facility] Last Admin: 11/03/21 09:05 Dose: 25 mg Documented by: Oxybutynin Chloride (Oxybutynin Chloride Xl 5 Mg Tab.Er.24) 10 mg PO DAILY [facility] Last Admin: 11/03/21 09:00 Dose: 10 mg Documented by: Pantoprazole Sodium (Pantoprazole 40 Mg Tablet) 40 mg PO [facility] Stop: 12/01/21 20:59 Last Admin: 11/03/21 20:56 Dose: 40 mg Documented by: Potassium Chloride (Potassium Chloride 20 Meq Packet (For Liquid)) 20 meq PO BID [facility] Last Admin: 11/03/21 17:28 Dose: 20 meq Documented by: Rosuvastatin Calcium (Rosuvastatin 10 Mg Tablet) [facility] Last Admin: 11/03/21 09:00 Dose: 10 mg D
[2021-11-04] MEDS: POTASSIUM CHLORIDE 20 MEQ PACKET (FOR LIQUID) PO (10:14)
[2021-11-04] MEDS: ROSUVASTATIN 10 MG TABLET PO (10:15)
[2021-11-04] MEDS: ASPIRIN 81 MG ENTERIC TABLET PO (10:15)
[2021-11-04] MEDS: buPROPion HCL SR (12 HR) 150 MG TAB 300 MG PO (10:15)
[2021-11-04] MEDS: VENLAFAXINE HCL XR 75 MG CAP.ER.24H PO (10:15)
[2021-11-04] MEDS: SODIUM CHLORIDE 0.9% IV 500 ML 100 ML IV CONT (10:30)
--- NOTE | 2021-11-04 11:02 | WPDCARDPROC ---
Cardiac Cath Procedure Note Date of procedure:: 11/04/21 Performing physician:: Greg Yoder MD Indication:: intermittent chest pain elevated troponin abnormal ECG Brief clinical history:: this is a 70-year-old woman who has a history of non insulin-dependent diabetes and hypertension. She presents with intermittent chest pain to the emergency department. Troponin levels were slightly out of normal range. Electrocardiogram showed anterior T-wave inversions. In this setting an angiogram was recommended. Previous ECGs are not available for compared Procedure Procedure performed:: left ventriculogram coronary angiogram Angio-Seal to right femoral artery Sedation/Medication given:: fentanyl 25 mg Versed 2 mg Access site:: right femoral artery Estimated blood loss:: 20 cc Procedure note:: patient was brought to the cardiac catheterization lab in the postabsorptive state where the right femoral triangle was prepared and draped in the usual fashion. Anesthesia was provided 1% lidocaine infiltrated locally. Using the modified Seldinger technique the femoral artery was punctured a 5 Cam[place]onian vascular sheath was placed. After this left heart catheterization was carried out. I used a 5 [place] angled pigtail catheter to measure left-sided hemodynamics and to inject the left ventriculogram in the our AO projection. Following this I used a standard 5 [place] JR4 catheter to engage and inject the right coronary artery and then a 5 [place] FL4 catheter to engage and inject the left coronary artery. The cineangiograms were reviewed and the procedure was terminated. An angiogram was then done of the femoral artery through the sheath after which a 6 [place] Angio-Seal device was used to provide hemostasis. There was a good result and she was taken to the holding area for post cath recovery. There were no signs of any procedural complications and no evidence of a groin hematoma was seen upon leaving the [employer]. Findings:: Hemodynamics: Central aortic pressure is 164 66 left ventricle 164/3 and diastolic pressure 16. No gradient was seen on pullback across the aortic valve. Left ventricle: The LV is normal in size all segments contract normally there were no wall motion abnormalities in the ejection fraction is visually estimated to be 65%. The left main coronary artery is nicely patent the left anterior descending is a medium caliber artery proximally and very small down toward the apex. The LAD has no atherosclerotic lesions seen. The major diagonal branch has approximately 20-30% stenosis in its 1st portion. The circumflex is a moderate caliber artery giving rise to the marginal branches and a posterior branch. The circumflex in the marginal branches are angiographically normal. The beginning of the posterior branch in the distal part of the circumflex has about 30-40% stenosis. The right coronary artery is dominant to the posterior circulation and of medium caliber. The right coronary artery is smooth and angiographically normal. Conclusion:: 1. Angiographically minimal coronary disease with modest plaquing in the diagonal branch of the LAD as well as in the posterior branch of the circumflex as described above. Patient has right coronary dominant circulation 2. normal, vigorous left ventricular systolic function without wall motion abnormalities 3. based on these findings I do not believe her presenting symptoms are related to myocardial ischemia since she has no coronary disease that is consistent with angina at rest. medical therapy for this mild disease will be recommended Greg Yoder MD [facility]
[2021-11-04] MEDS: SODIUM CHLORIDE 0.9% IV 1,000 ML 125 ML IV CONT (11:10)
[2021-11-04 12:34] LABS: Glucose Point of Care 171 mg/dl (65-105)
--- NOTE | 2021-11-04 13:30 | PM.DS ---
DS: Admitting Diagnosis Discharge Date 11/04/2021 Admitting Diagnosis Chest pain DS: Discharge Diagnosis Discharge Diagnosis (1) Chest pain: Code(s): R07.9 - Chest pain, unspecified Status: Acute Assessment and Plan: Presented with left anterior chest pain radiating from the left shoulder and down the arm. Troponins mildly elevated with flat trend. Noted to have anterolateral T-wave inversion without prior EKG for comparison. She was seen in consultation by Cardiology To to EKG findings, risk factors, and symptoms, he was determined that she should undergo cardiac catheterization Coronary angiogram on 11/04 showed minimal coronary disease with modest plaque in the diagonal LAD and posterior circumflex Initiated on aspirin, rosuvastatin, metoprolol during admission which will be continued She will follow-up with cardiology as outpatient (2) Abnormal EKG: Code(s): R94.31 - Abnormal electrocardiogram [ECG] [EKG] Status: Acute Assessment and Plan: See above (3) Elevated troponin: Code(s): R77.8 - Other specified abnormalities of plasma proteins Status: Acute Assessment and Plan: See above (4) Type 2 diabetes mellitus: Code(s): E11.9 - Type 2 diabetes mellitus without complications Status: Acute Assessment and Plan: A1c is 8.4. Blood sugars well controlled during admission Managed during admission with Accu-Cheks, moderate dose sliding scale insulin, and hypoglycemic protocol Continue home glipizide (5) Hypothyroidism: Code(s): E03.9 - Hypothyroidism, unspecified Status: Acute Assessment and Plan: TSH is within normal limits Continue levothyroxine (6) Hypokalemia: Code(s): E87.6 - Hypokalemia Status: Acute Assessment and Plan: Resolved with supplementation (7) Hypomagnesemia: Code(s): E83.42 - Hypomagnesemia Status: Acute Assessment and Plan: Resolved with supplementation DS: Summary Hospital Course Hospital Course: Date of admission: 11/01/2021 Date of discharge 11/04/2021 Brittaney Gale is a 70-year-old female with a history of type 2 diabetes mellitus, hypothyroidism, hyperlipidemia, essential tremor presented to the emergency department 11/01/2021 at the direction of her PCP for evaluation of left-sided shoulder, chest, arm pain with associated nausea ongoing for 2 weeks. On presentation to the ED, she was found to have troponin of 0.083 an EKG showed T-wave inversion. She was admitted to the hospitalist service for further evaluation management was seen in consultation by Cardiology. Given her clinical picture, it was determined that she would undergo cardiac catheterization for further evaluation. This was completed on 11/04/2021 which showed minimal coronary disease that will be managed medically. Please see above for further details. Patient tolerated this procedure well. She was feeling back to her usual state of health and was eager for discharge home. Given her overall improvement, she was determined to no longer require inpatient care and was discharged in hemodynamically stable condition on 11/04/2021. Discussed with the patient worrisome signs and symptoms for which to return and she was educated on her medications. She will follow-up with her PCP for further monitoring and will maintain follow-up with Cardiology. Status at Discharge Functional status at discharge: independent ambulation Overall status at discharge: patient is back to baseline Time Spent with Patient Time attestation: Total time spent providing and/or coordinating discharge services: 45 minutes Time spent: Greater than 30 minutes Exam Narrative: General: Obese, well-appearing 70 year-old female, supine in bed, comfortable, NARD Neuro: awake, alert and oriented x4, speech clear, no focal neuro deficits noted HEENMT: normocephalic, atraumatic, EOMI, sclerae anicteric Re
[2021-11-04] MEDS: METOPROLOL SUCCINATE EXT REL 25 MG TABCR PO (14:18)
[2021-11-04] MEDS: ONDANSETRON HCL ODT 4 MG TABLET PO (14:19)
== END 2021-11-04 15:04 | disposition home or self-care (01) ==
LOC: ANHED 10:45 → ANHIMU 15:22
PROVIDERS: Internal Medicine; Internal Medicine Cardiovascular Disease; Physician Assistant; Specialist; Admitting Provider Internal Medicine; Emergency Provider Emergency Medicine; PCP Internal Medicine; Visit Provider Family Medicine
PROC: 4A023N7 Measurement of Cardiac Sampling and Pressure, Left Heart, Percutaneous Approach (ICD-10-PCS; CPT 93452; principal; 2021-11-04 10:00)
DX: R07.9 Chest pain, unspecified (principal); E87.6 Hypokalemia; E83.42 Hypomagnesemia; I25.10 Atherosclerotic heart disease of native coronary artery without angina pectoris; R94.31 Abnormal electrocardiogram [ECG] [EKG]; R77.8 Other specified abnormalities of plasma proteins; E11.69 Type 2 diabetes mellitus with other specified complication; E78.2 Mixed hyperlipidemia; E03.9 Hypothyroidism, unspecified; K31.84 Gastroparesis; E55.9 Vitamin D deficiency, unspecified; F32.9 Major depressive disorder, single episode, unspecified; K21.9 Gastro-esophageal reflux disease without esophagitis; G25.0 Essential tremor; Z86.14 Personal history of Methicillin resistant Staphylococcus aureus infection; Z87.891 Personal history of nicotine dependence; Z20.822 Contact with and (suspected) exposure to COVID-19
CPT/HCPCS: 36415; 71046; 80048; 80053; 80061; 82948; 83036; 83690; 83735; 84443; 84484; 85025; 85610; 85730; 93005; 93458; 96365; 96366; 96372; 96375; 99285; A9270; C1760; C1887; C1894; C9803; G0269; G0378; J1644; J1650; J1815; J2250; J3010; J3475; J3480; J7030; J7040; U0003; U0005

== ENCOUNTER 2023-12-22 19:06 | Observation (INO) | payer MEDICARE, SELFPAY ==
--- NOTE | ~2023-12-22 | XR_ITS ---
EXAMINATION: XR chest 1V portable Exam Date/Time: 12/22/2023 19:55 CDT HISTORY: weakness Comparison: 11/01/2021. RESULT: Lines, tubes, and devices: None. Lungs and pleura: Clear. Cardiomediastinal silhouette: Stable. Other: No acute osseous or upper abdominal finding. IMPRESSION: No acute cardiopulmonary process. Reviewed, dictated and finalized at location K.
--- NOTE | ~2023-12-22 | CT_ITS ---
EXAMINATION: CT brain wo con DATE: 12/22/2023 21:33 INDICATION: altered mental status . TECHNIQUE: Computed tomography (CT) of the head was performed without intravenous contrast. The mA wa s adjusted according to patient size. Iterative reconstruction technique was employed. The dose-lengt h product was 605.33 mGy-cm. COMPARISON: None. FINDINGS: No acute intracranial hemorrhage or extra-axial fluid collection. No hydrocephalus, mass, or herniation. No acute ischemic infarct. Unremarkable dural venous sinus attenuation. No acute osseous abnormality. Small retention cyst/polyp in the left anterior ethmoid sinus, the remaining aerated spaces are clear . Mild atrophy and chronic white matter change. Atherosclerotic intracranial calcification. Bilateral l ens replacements. IMPRESSION: No acute intracranial process. Reviewed, dictated and finalized at location K.
--- NOTE | ~2023-12-22 | CT_ITS ---
EXAMINATION: CT abdomen pelvis w con DATE: 12/22/2023 21:39 INDICATION: abdominal pain TECHNIQUE: Computed tomography (CT) of the abdomen and pelvis was performed with 100 mL Omnipaque-350 intravenous contrast. Automated exposure control and iterative reconstruction technique were employe d. The dose-length product was 1464.42 mGy-cm. COMPARISON: 11/16/2018. FINDINGS: Exam limited by beam hardening from arm down positioning. Lower thorax: Mild bibasilar ground glass opacities, motion artifact, and senescent change. Calcified granulomas. Liver: Enlarged. Diffusely low-density parenchyma. Biliary/Gallbladder: Gallbladder is absent. No bile duct dilation. Pancreas: No mass or duct dilation. Spleen: Normal. Adrenals:No mass. Kidneys: No suspicious mass, obstructing stone, or hydronephrosis. GI tract: Small hiatal hernia. Mild distal esophageal and antral wall edema. Small uncomplicated duod enal diverticulum. Wall edema and pericolonic inflammatory change involving the sigmoid colon No smal l or large bowel dilation. Normal appendix. Diverticulosis without diverticulitis. Mesentery/Peritoneum: No ascites, mass, or free air. Retroperitoneum: No mass. Atherosclerotic abdominal aortic and/or arterial calcifications. Pelvis: Pelvic organs are within normal limits. Soft Tissues: Soft tissues and body wall unremarkable. Bones: No acute osseous finding. IMPRESSION: Hepatomegaly with steatosis. Mild distal esophagitis and antral gastritis. Long segment wall edema and inflammation involving the sigmoid colon may reflect inflammatory, infect ious, or ischemic colitis. Reviewed, dictated and finalized at location K. IMPRESSION: Hepatomegaly with steatosis. Mild distal esophagitis and antral gastritis. Long segment wall edema and inflammation involving the sigmoid colon may reflec t inflammatory, infectious, or ischemic colitis.
[2023-12-22 19:07] VITALS: BP 165/104; PULSE 96; RESP 30; TEMP 36.9; O2SAT 100
[2023-12-22 19:32] LABS: Glucose Point of Care > 500 mg/dl (65-105)
[2023-12-22 20:38] LABS: Appearance Urine Cloudy (Clear); Bacteria Urine 4+ /hpf; Bilirubin Urine Negative (Negative); Blood Urine 1+ (Negative); Budding Yeast Urine Present /hpf; Color Urine Yellow (Yellow); Glucose Urine UA 3+ mg/dL (Negative); Ketones Urine Negative (Negative); Leukocyte Esterase Ur 1+ LEU/UL (Negative); Need Manual Microscopic Reviewed; Nitrate Urine Negative (Negative); Protein Urine Negative (Negative); Specific Grav Ur 1.029 (1.001-1.035); Squamous Epithelial Cell Urine None Seen /hpf (Few); Urobilinogen Urine 0.2 mg/dL (<2.0); WBC Urine >100 /hpf (0-3); pH Urine 5.5 (5.0-9.0)
[2023-12-22 20:39] LABS: Add Urine Microscopic? YES
[2023-12-22] MEDS: SODIUM CHLORIDE 0.9% IV 1,000 ML 999 ML IV CONT ×2 (20:41→21:06)
[2023-12-22 20:44] LABS: Basophils Absolute Auto 0.1 K/mm3 (0.0-0.1); Basophils Percent Auto 0.7 % (0.2-1.2); Eosinophils Absolute Auto 0.1 K/mm3 (0-0.3); Eosinophils Percent Auto 0.8 % (0-4.4); Hematocrit 40.9 % (37.0-47.0); Hemoglobin 13.8 g/dL (12.0-15.0); Immature Granulocyte Absolute 0.04 K/mm3 (0.00-0.031); Immature Granulocyte Percent A 0.3 % (0-0.5); Lymphocytes Absolute Auto 2.79 K/mm3 (0.9-3.2); Lymphocytes Percent Auto 24.4 % (18.3-44.2); Mean Corpuscular HGB Conc 33.7 g/dl (32-36); Mean Corpuscular Hemoglobin 27.8 pg (26-34); Mean Corpuscular Volume 82.5 fl (80-100); Mean Platelet Volume 11.9 fl (7.4-10.4); Monocytes Absolute Auto 0.8 K/mm3 (0.1-0.6); Monocytes Percent Auto 6.8 % (2.6-8.5); Neutrophils Absolute Auto 7.7 K/mm3 (1.3-6.7); Platelet Count Result 282 k/mm3 (150-375); Red Blood Count 4.96 M/mm3 (4.2-5.4); White Blood Count 11.5 K/mm3 (4.5-10.0)
[2023-12-22 20:52] LABS: Influenza A QL RT-PCR Negative (Negative); Influenza B QL RT-PCR Negative (Negative); RSV RNA, RT-PCR Negative (Negative); SARS-CoV-2 RNA PCR Negative (Negative)
--- NOTE | 2023-12-22 20:54 | ED.GENADULT ---
HPI - General Adult General Chief complaint: Recheck/Abnormal Lab/Rx Stated complaint: HI BG, HYPOTENSIVE, AMS Time Seen by Provider: 12/22/23 19:18 History of Present Illness HPI narrative: Patient is a 73-year-old female who presents emergency department chief complaint of altered mental status. Patient has prior history of diabetes and is supposed to be taking Ozempic. The patient over the last several days and having progressive weakness has had frequent falls family is knows she has been very dry patient was found with a half he became stuck to her shirt the patient reports also that her mouth is extremely dry Related Data Home Medications Medication Instructions Recorded Confirmed venlafaxine 75 mg capsule,extended 75 mg PO DAILY 09/08/19 07/08/23 release 24 hr (Effexor XR) bupropion HCl 300 mg 24 hr tablet, 300 mg PO DAILY 11/28/20 07/08/23 extended release oxybutynin chloride 10 mg 10 mg PO DAILY 11/28/20 07/08/23 tablet,extended release 24 hr diphenhydramine 25 2 tablet PO HS 11/01/21 07/08/23 mg-acetaminophen 500 mg tablet (Acetaminophen PM) sumatriptan succinate 50 mg tablet See Rx Instructions PO .COMPLEX 11/01/21 07/08/23 (Imitrex) PRN Migraine Headache Allergies Allergy/AdvReac Type Severity Reaction Status Date / Time No Known Allergies Allergy Verified 07/08/23 11:26 Review of Systems Review of Systems: A 10 system review of systems was completed on the patient and is negative except for what is stated in the HPI. Nursing and ancillary documentation was reviewed. [facility] Past Medical History Medical History Chronic nausea Depression Essential tremor Gastro-esophageal reflux disease without esophagitis Gastroparesis History of colon polyps Hyperlipidemia associated with type 2 diabetes mellitus Hypothyroidism MRSA infection Other hyperlipidemia Type 2 diabetes mellitus Vitamin D deficiency, unspecified Surgical History Surgical History History of cataract extraction with lens replacement History of cholecystectomy History of colonoscopy Diverticular disease noted in 2010. Benign colon polyps in 2018. History of esophagogastroduodenoscopy Hiatal hernia, gastritis, multiple fundic polyps. History of hernia repair (10/2018) Incarcerated ventral hernia repair with mesh. History of tubal ligation Family History Family History Mother Family history of malignant neoplasm Patient's mother is Father Patient's father is Cerebrovascular accident Asthma History of blood clots Diabetes mellitus Social History Social History Social History: Surrogate decision maker: Kenroy Castanon, spouse. Code status: Full code. Smoking packs per day: 2 Smoking cigarettes per day: 40.0 Years smoked: 25 Smoking pack-years: 50.00 Smoking status: Former smoker Tobacco type: cigarettes Smoking end date: 07/06/06 Alcohol intake: never Substance use: never Lack of Transportation: No Lack of Food: Never True Current Housing: I Have Housing Concerned About Future Housing: No Difficulty Paying Gas/Electric Bills: No Difficulty Paying for Meds: No Currently Unemployed: No Education: High School Diploma/GED Difficulty w/ Childcare or Family Care: No Spiritual care concerns: No Exam Narrative: GENERAL: Well-appearing, well-nourished, and in no acute distress. HEAD: Normocephalic, atraumatic. EYES: PERRLA and EOMI. ENT: Nares clear, no rhinorrhea or epistaxis. Mucous membranes Try. NECK: Supple. CHEST: Clear to auscultation. No respiratory distress. HEART: Regular rate and rhythm. No murmur heard. Normal peripheral pulses. ABDOMEN: Soft, mild tenderness to p
[2023-12-22 20:55] LABS: Prothrombin Time 13.7 Seconds (11.1-14.7)
[2023-12-22 20:56] LABS: Partial Thromboplastin Time 20.8 Seconds (22.3-36.8)
[2023-12-22 20:56] LABS: Lactic Acid Reflex 3.8 mmol/L (0.7-2.0)
[2023-12-22 21:01] LABS: Alanine Aminotransferase 23 U/L (6-35); Alkaline Phosphatase 80 U/L (38-126); Anion Gap 11 mmol/L (4-12); Aspartate Amino Transferase 30 U/L (14-36); Bilirubin,Total 0.7 mg/dL (0.2-1.3); Blood Urea Nitrogen 19 mg/dL (7-17); Calcium 9.1 mg/dL (8.4-10.2); Carbon Dioxide 23 mmol/L (22-30); Chloride 97 mmol/L (98-107); Estimated CRCL calculation 58 ml/min; Estimated Glomerular Filt Rate > 60; Glucose 600 mg/dL (65-110); Lipase 128 U/L (23-300); Potassium 4.6 mmol/L (3.4-5.0); Sodium 131 mmol/L (137-145)
[2023-12-22 21:09] LABS: Troponin I < 0.012 ng/mL (0.000-0.034)
[2023-12-22 21:22] LABS: Beta-Hydroxybutyrate/Acetoacetate 0.27 mmol/L (0.02-0.27)
[2023-12-22 21:29] LABS: Creatine Kinase 135 U/L (30-135)
[2023-12-22 21:41] LABS: Procalcitonin 0.1 ng/mL
[2023-12-22] MEDS: INSULIN HUMAN REGULAR (*BKC) 100 UNITS/ML 10 UNITS IV PUSH (22:21)
[2023-12-22 22:26] LABS: Glucose Point of Care > 500 mg/dl (65-105)
[2023-12-22] MEDS: MAGNESIUM SULF 2 GM/WATER 50ML 2 GM/50 ML BAG IVPB (22:38)
[2023-12-22 23:03] LABS: Glucose Point of Care 425 mg/dl (65-105)
[2023-12-22 23:04] VITALS: BP 148/85; PULSE 86; RESP 18; O2SAT 98
--- NOTE | 2023-12-22 23:07 | PM.IMHP ---
H&P: HPI History of Present Illness Date/Time: 12/22/23 23:07 Chief Complaint: Abdominal pain and diarrhea Narrative: He is 70-year-old female with history of gastric reflux, diabetes, hypothyroidism history of kidney stones presents to the hospital complaints of abdominal pain and diarrhea for the last few days he patient also complained that she has been feeling a little dizzy and weak and lethargic. Patient noted to have dry mucosa and patient's blood sugar was in 500s with no sign of metabolic acidosis. Patient also had a cardiology evaluation done her 2 years ago followed by the cardiac catheterization the EF of 60%. Patient complains of urgency frequency of urination with repeated chills no back pain no dizziness Review of Systems Review of Systems: All systems reviewed & are unremarkable except as noted in HPI and below PMFSH Past Medical History Medical History Chronic nausea Depression Essential tremor Gastro-esophageal reflux disease without esophagitis Gastroparesis History of colon polyps Hyperlipidemia associated with type 2 diabetes mellitus Hypothyroidism MRSA infection Other hyperlipidemia Type 2 diabetes mellitus Vitamin D deficiency, unspecified Surgical History Surgical History History of cataract extraction with lens replacement History of cholecystectomy History of colonoscopy Diverticular disease noted in 2010. Benign colon polyps in 2018. History of esophagogastroduodenoscopy Hiatal hernia, gastritis, multiple fundic polyps. History of hernia repair (10/2018) Incarcerated ventral hernia repair with mesh. History of tubal ligation Family History Family History Mother Family history of malignant neoplasm Patient's mother is Father Patient's father is Cerebrovascular accident Asthma History of blood clots Diabetes mellitus Social History Social History Social History: Surrogate decision maker: Kenroy Castanon, spouse. Code status: Full code. Smoking packs per day: 2 Smoking cigarettes per day: 40.0 Years smoked: 25 Smoking pack-years: 50.00 Smoking status: Former smoker Tobacco type: cigarettes Smoking end date: 07/06/06 Alcohol intake: never Substance use: never Lack of Transportation: No Lack of Food: Never True Current Housing: I Have Housing Concerned About Future Housing: No Difficulty Paying Gas/Electric Bills: No Difficulty Paying for Meds: No Currently Unemployed: No Education: High School Diploma/GED Difficulty w/ Childcare or Family Care: No Spiritual care concerns: No Meds Home Medications and Allergies Home Medications Medication Instructions Recorded Confirmed Type venlafaxine 75 mg capsule,extended 75 mg PO DAILY 09/08/19 07/08/23 History release 24 hr (Effexor XR) bupropion HCl 300 mg 24 hr tablet, 300 mg PO DAILY 11/28/20 07/08/23 History extended release oxybutynin chloride 10 mg 10 mg PO DAILY 11/28/20 07/08/23 History tablet,extended release 24 hr diphenhydramine 25 2 tablet PO HS 11/01/21 07/08/23 History mg-acetaminophen 500 mg tablet (Acetaminophen PM) sumatriptan succinate 50 mg tablet See Rx Instructions PO .COMPLEX 11/01/21 07/08/23 History (Imitrex) PRN Migraine Headache aspirin 81 mg tablet,delayed 81 mg PO QAM #30 tabs 11/04/21 07/08/23 Rx release blood-glucose meter (OneTouch #1 ea 12/31/21 07/08/23 Rx Ultra2 Meter kit) lancets (OneTouch UltraSoft #100 ea 12/31/21 07/08/23 Rx Lancets) blood sugar diagnostic (OneTouch #100 ea 01/01/22 07/08/23 Rx Ultra Test strips) glipizide 10 mg tablet, extended 10 mg PO DAILY #90 tabs 08/10/23 Rx release 24 hr levothyroxine 125 mcg tablet 125 mcg P
[2023-12-22 23:31] LABS: Troponin I < 0.012 ng/mL (0.000-0.034)
[2023-12-22 23:34] VITALS: BP 148/95; PULSE 85; RESP 16; O2SAT 98
[2023-12-22 23:42] LABS: Reflex Lactic Acid Yes or No Add Lactic
[2023-12-22 23:45] LABS: Hemoglobin A1C > 14.0 % (<5.7)
[2023-12-22 23:59] VITALS: BMI 33.0
[2023-12-23] VITALS (12 sets, daily range): BP systolic 136–151; BP diastolic 55–65; PULSE 56–79; RESP 14–20; TEMP 36.4–36.6; O2SAT 98–100
--- NOTE | 2023-12-23 00:08 | ADMGEN ---
This patient, Brittaney Castanon, was admitted to Medical Room 253-01. Patient/family oriented to hospital policies and general routines including ID bracelet, bed and alarms, visiting hours, pain management, procedures, bathroom and other care routines, personal items, smoking policy, room service/diet, and visiting hours. Information on how to activate the Rapid Response Team has been discussed. Patient/Family are encouraged to report perceived risks to care and to ask questions if they do not understand what they are told or what they should do.
[2023-12-23 00:25] LABS: Glucose Point of Care 413 mg/dl (65-105)
[2023-12-23 04:06] LABS: Glucose Point of Care 398 mg/dl (65-105)
[2023-12-23] MEDS: SODIUM CHLORIDE 0.9% IV 1,000 ML 125 ML IV CONT ×2 (05:52→17:27)
[2023-12-23 07:00] LABS: Hematocrit 39.9 % (37.0-47.0); Hemoglobin 12.9 g/dL (12.0-15.0); Mean Corpuscular HGB Conc 32.3 g/dl (32-36); Mean Corpuscular Hemoglobin 27.4 pg (26-34); Mean Corpuscular Volume 84.7 fl (80-100); Mean Platelet Volume 11.5 fl (7.4-10.4); Platelet Count Result 244 k/mm3 (150-375); Red Blood Count 4.71 M/mm3 (4.2-5.4)
[2023-12-23 07:27] LABS: Alanine Aminotransferase 21 U/L (6-35); Albumin Level 3.4 g/dL (3.5-5.1); Alkaline Phosphatase 63 U/L (38-126); Anion Gap 9 mmol/L (4-12); Aspartate Amino Transferase 31 U/L (14-36); Bilirubin,Total 0.6 mg/dL (0.2-1.3); Blood Urea Nitrogen 15 mg/dL (7-17); Calcium 8.8 mg/dL (8.4-10.2); Carbon Dioxide 21 mmol/L (22-30); Chloride 104 mmol/L (98-107); Estimated CRCL calculation 72 ml/min; Estimated Glomerular Filt Rate > 60; Glucose 363 mg/dL (65-110); Sodium 134 mmol/L (137-145)
[2023-12-23] MEDS: LEVOTHYROXINE SODIUM 125 MCG TABLET PO (07:51)
[2023-12-23 08:21] LABS: Glucose Point of Care 349 mg/dl (65-105)
[2023-12-23] MEDS: ATORVASTATIN 40 MG TABLET PO (08:28)
[2023-12-23] MEDS: VENLAFAXINE HCL XR 75 MG CAP.ER.24H PO (08:28)
[2023-12-23] MEDS: METOPROLOL SUCCINATE EXT REL 25 MG TABCR PO (08:28)
[2023-12-23] MEDS: PANTOPRAZOLE 40 MG TABLET PO (08:29)
[2023-12-23] MEDS: ROSUVASTATIN 10 MG TABLET PO (08:29)
[2023-12-23] MEDS: ENOXAPARIN 40 MG/0.4 ML SYRINGE SUB-Q (08:29)
[2023-12-23] MEDS: INSULIN ASPART (*BKC) 100 UNITS/ML SUB-Q ×4 (08:34→21:16)
[2023-12-23 12:05] LABS: Glucose Point of Care 359 mg/dl (65-105)
--- NOTE | 2023-12-23 13:52 | PM.IMPN ---
Progress Note: A&P Assessment and Plan (1) Acute UTI: Code(s): N39.0 - Urinary tract infection, site not specified Status: Acute Assessment and Plan: Urine cultures and sensitivity. Continue IV hydration. Monitor CBC CMP monitor for sepsis. Monitor vital signs Continue antibiotics Rocephin IV Start probiotics to prevent antibiotic induced diarrhea Blood cultures Monitor for obstructive uropathy and pyelonephritis (2) Hyperosmolar hyperglycemic state (HHS): Code(s): E11.00 - Type 2 diabetes mellitus with hyperosmolarity without nonketotic hyperglycemic-hyperosmolar coma (NKHHC) Status: Acute Assessment and Plan: Optimize medications sliding scale insulin, increase to high scale sliding scale Routine glucose monitoring. Watch for Hypoglycemia. 1800 ADA diet Lifestyle modification HB A1c >14.0 Antiplatelet therapy with aspirin Will wait for patient to start semaglutide (3) Hypomagnesemia: Code(s): E83.42 - Hypomagnesemia Status: Acute Assessment and Plan: Mg is 1.0 Replace as indicated Trend MG Daily labs (4) Generalized weakness: Code(s): R53.1 - Weakness Status: Acute Assessment and Plan: PT/OT consulted Encourage activity (5) Acute coronary syndrome: Code(s): I24.9 - Acute ischemic heart disease, unspecified Status: Acute Assessment and Plan: Continue aspirin S/P cardiac cath Continue current home therapy Time Spent With Patient Time: 42 minutes Time with patient: Greater than 35 minutes Subjective Date/time seen: 12/23/23 1200 Interval history: 12/22/23 23:07 He is 70-year-old female with history of gastric reflux, diabetes, hypothyroidism history of kidney stones presents to the hospital complaints of abdominal pain and diarrhea for the last few days he patient also complained that she has been feeling a little dizzy and weak and lethargic. Patient noted to have dry mucosa and patient's blood sugar was in 500s with no sign of metabolic acidosis. Patient also had a cardiology evaluation done her 2 years ago followed by the cardiac catheterization the EF of 60%. Patient complains of urgency frequency of urination with repeated chills no back pain no dizziness 12/23/23 1200 Patient was crying at time of examination. She stated that she just really want to go home. She also stated that she does check her sugar but also elected once she does eat a lot of sugary type foods. She denies any chest pain, shortness a breath, nausea, vomiting, diarrhea constipation. Glucose is noted to be elevated in the mid 300s. Hemoglobin A1c was greater than 14. Will await for urine cultures to result Review of Systems Review of Systems: All systems reviewed & are unremarkable except as noted in HPI and below Exam Narrative: General: well-nourished, well-appearing 73-year-old female, sitting up in bed, comfortable, NARD Neuro: awake, alert and oriented x4, speech clear, no focal neuro deficits noted HEENMT: normocephalic, atraumatic, EOMI, sclerae anicteric, moist oral mucosa Respiratory: Clear to auscultation bilaterally without crackles, rhonchi or wheezes, nonlabored breathing Cardio: regular rate, regular rhythm with S1-S2 Abdomen: nondistended, normoactive bowel sounds, soft, nontender to palpation Extremities: no edema, erythema, or tenderness to palpation, DP pulses 2+ bilaterally Skin: no rashes or lesions, warm and dry Psych: appropriate mood and affect, judgment and insight intact Objective Data Vital Signs Vital Signs: Vital Signs - 24 hr 12/22/23 19:07 12/22/23 23:04 12/22/23 23:34 Temperature 98.5 F Pulse Rate 96 86 85 Respiratory Rate 30 H 18 16 Blood Pressure 165/104 H 148/85 H 148/95 H Pulse Oximetry 100 98 98 Oxygen Delivery Room Air Fraction of Inspired Oxygen 12/23/23 00:01 12/23/23 03:31 12/23/23 00:00 Temperatu
[2023-12-23 17:00] LABS: Glucose Point of Care 344 mg/dl (65-105)
[2023-12-23 20:21] LABS: Glucose Point of Care 292 mg/dl (65-105)
[2023-12-23] MEDS: INSULIN GLARGINE (*BKC) 100 UNITS/ML 28 UNITS SUB-Q (21:14)
[2023-12-24] VITALS: PULSE 59
[2023-12-24] MEDS: SODIUM CHLORIDE 0.9% IV 1,000 ML 125 ML IV CONT (03:55)
[2023-12-24 04:00] VITALS: PULSE 60
[2023-12-24 05:24] VITALS: BP 135/61; PULSE 60; RESP 14; TEMP 36.6; O2SAT 99
[2023-12-24 06:05] LABS: Hematocrit 37.3 % (37.0-47.0); Hemoglobin 11.8 g/dL (12.0-15.0); Mean Corpuscular HGB Conc 31.6 g/dl (32-36); Mean Corpuscular Hemoglobin 27.4 pg (26-34); Mean Corpuscular Volume 86.7 fl (80-100); Mean Platelet Volume 11.6 fl (7.4-10.4); Platelet Count Result 233 k/mm3 (150-375); Red Cell Distribution Width 14.1 % (11.5-14.5); White Blood Count 9.2 K/mm3 (4.5-10.0)
[2023-12-24] MEDS: LEVOTHYROXINE SODIUM 125 MCG TABLET PO (06:07)
[2023-12-24 06:34] LABS: Alanine Aminotransferase 19 U/L (6-35); Albumin Level 3.3 g/dL (3.5-5.1); Alkaline Phosphatase 58 U/L (38-126); Anion Gap 5 mmol/L (4-12); Aspartate Amino Transferase 27 U/L (14-36); Bilirubin,Total 0.4 mg/dL (0.2-1.3); Blood Urea Nitrogen 8 mg/dL (7-17); Calcium 7.7 mg/dL (8.4-10.2); Carbon Dioxide 22 mmol/L (22-30); Chloride 109 mmol/L (98-107); Estimated CRCL calculation 72 ml/min; Estimated Glomerular Filt Rate > 60; Glucose 191 mg/dL (65-110); Potassium 3.8 mmol/L (3.4-5.0); Sodium 136 mmol/L (137-145)
[2023-12-24 08:00] VITALS: PULSE 68
[2023-12-24 08:10] LABS: Glucose Point of Care 201 mg/dl (65-105)
[2023-12-24 08:39] VITALS: PULSE 65
[2023-12-24] MEDS: INSULIN ASPART (*BKC) 100 UNITS/ML SUB-Q ×2 (08:39→12:19)
[2023-12-24] MEDS: ATORVASTATIN 40 MG TABLET PO (08:39)
[2023-12-24] MEDS: PANTOPRAZOLE 40 MG TABLET PO (08:39)
[2023-12-24] MEDS: METOPROLOL SUCCINATE EXT REL 25 MG TABCR PO (08:39)
[2023-12-24] MEDS: VENLAFAXINE HCL XR 75 MG CAP.ER.24H PO (08:39)
[2023-12-24] MEDS: ENOXAPARIN 40 MG/0.4 ML SYRINGE SUB-Q (08:39)
[2023-12-24] MEDS: ROSUVASTATIN 10 MG TABLET PO (08:39)
[2023-12-24 11:59] LABS: Glucose Point of Care 324 mg/dl (65-105)
--- NOTE | 2023-12-24 13:49 | PM.DS ---
DS: Admitting Diagnosis Discharge Date 12/24/23 1115 Admitting Diagnosis Acute UTI DS: Discharge Diagnosis Discharge Diagnosis (1) Acute UTI: Code(s): N39.0 - Urinary tract infection, site not specified Status: Acute Assessment and Plan: Urine cultures and sensitivity. Continue IV hydration. Monitor CBC CMP monitor for sepsis. Monitor vital signs Continue antibiotics Rocephin IV Start probiotics to prevent antibiotic induced diarrhea Blood cultures Monitor for obstructive uropathy and pyelonephritis 12/25/2023 checked culture and susceptible to augmentin. Patient was sent with 7 days of augmentin (2) Hyperosmolar hyperglycemic state (HHS): Code(s): E11.00 - Type 2 diabetes mellitus with hyperosmolarity without nonketotic hyperglycemic-hyperosmolar coma (NKHHC) Status: Acute Assessment and Plan: Optimize medications sliding scale insulin, increase to high scale sliding scale Routine glucose monitoring. Watch for Hypoglycemia. 1800 ADA diet Lifestyle modification HB A1c >14.0 Antiplatelet therapy with aspirin Will wait for patient to start semaglutide (3) Hypomagnesemia: Code(s): E83.42 - Hypomagnesemia Status: Acute Assessment and Plan: Mg is 1.0 Replace as indicated Trend MG Daily labs (4) Generalized weakness: Code(s): R53.1 - Weakness Status: Acute Assessment and Plan: PT/OT consulted Encourage activity (5) Acute coronary syndrome: Code(s): I24.9 - Acute ischemic heart disease, unspecified Status: Acute Assessment and Plan: Continue aspirin S/P cardiac cath Continue current home therapy DS: Summary Hospital Course Hospital Course: Patient is 70-year-old female with a past medical history of gastric reflux, diabetes, hypothyroidism who presented the ED with complaints of abdominal pain and diarrhea along with weakness and lethargy. Patient did have glucose within the 500s. Urine culture did grow Gram-negative bacilli. Patient has been on ceftriaxone. Hemoglobin A1c was greater than 14. Magnesium was 1.0. Magnesium was repleted. Currently patient is doing better. She denies any current chest pain, shortness a breath, nausea, vomiting, diarrhea constipation. Patient is stable for discharge per labs and vital signs. Patient following with her primary care provider for further instructions and medication changes. Status at Discharge Functional status at discharge: uses cane/walker Overall status at discharge: patient is progressing back to baseline Time Spent with Patient Time attestation: Total time spent providing and/or coordinating discharge services:43 minutes Time spent: Greater than 30 minutes Specific discharge activities: Diagnostic testing, chart review, developing a treatment plan, education, care coordination documentation, physical exam, result review Exam Narrative: General: well-nourished, well-appearing 73-year-old female, sitting up in bed, comfortable, NARD Neuro: awake, alert and oriented x4, speech clear, no focal neuro deficits noted HEENMT: normocephalic, atraumatic, EOMI, sclerae anicteric, moist oral mucosa Respiratory: Clear to auscultation bilaterally without crackles, rhonchi or wheezes, nonlabored breathing Cardio: regular rate, regular rhythm with S1-S2 Abdomen: nondistended, normoactive bowel sounds, soft, nontender to palpation Extremities: no edema, erythema, or tenderness to palpation, DP pulses 2+ bilaterally Skin: no rashes or lesions, warm and dry Psych: appropriate mood and affect, judgment and insight intact DS: Data Data Completed and Pending Labs on day of discharge: Labs from last 24 hours 12/24/23 12/24/23 12/24/23 11:56 08:03 05:44 WBC 9.2 RBC 4.30 Hgb 11.8 L Hct 37.3 MCV 86.7 MCH 27.4 MCHC 31.6 L RDW 14.1 Plt Count 233 MPV 11.6 H Sodium 136 L Potassium
[2023-12-24 14:00] VITALS: BP 146/70; PULSE 68; RESP 18; TEMP 36.4; O2SAT 100
[2023-12-24 15:02] LABS: Magnesium 1.3 mg/dL (1.6-2.3)
[2023-12-24 15:10] VITALS: BMI 33.0
--- NOTE | 2023-12-24 15:20 | PC.NURSE ---
DSMT and MNT initiated. Faxed to Dr. Norwood.
--- NOTE | 2023-12-24 16:06 | PCOTNOTE ---
The patient initial evaluation was not completed on 12/23 due to patient discharging within the hour and RN noting that OT is not needed.
== END 2023-12-24 16:35 | disposition home health service (06) ==
LOC: ANHED 22:56 → ANH2MED 12-24 13:47
PROVIDERS: Nurse Practitioner; Admitting Provider Internal Medicine; Emergency Provider Emergency Medicine; PCP Internal Medicine; Visit Provider Hospitalist
DX: N39.0 Urinary tract infection, site not specified (principal); E11.00 Type 2 diabetes mellitus with hyperosmolarity without nonketotic hyperglycemic-hyperosmolar coma (NKHHC); I24.9 Acute ischemic heart disease, unspecified; E83.42 Hypomagnesemia; R53.1 Weakness; E78.5 Hyperlipidemia, unspecified; E03.9 Hypothyroidism, unspecified; E78.2 Mixed hyperlipidemia; F32.A Depression, unspecified; K21.9 Gastro-esophageal reflux disease without esophagitis; Z87.891 Personal history of nicotine dependence; Z79.84 Long term (current) use of oral hypoglycemic drugs; Z79.82 Long term (current) use of aspirin; Z79.85 Long-term (current) use of injectable non-insulin antidiabetic drugs; Z20.822 Contact with and (suspected) exposure to COVID-19
CPT/HCPCS: 36415; 70450; 71045; 74177; 80053; 81001; 82010; 82550; 82948; 83036; 83605; 83690; 83735; 84145; 84484; 85025; 85027; 85610; 85730; 87040; 87077; 87086; 87088; 87186; 87637; 96361; 96365; 96366; 96372; 96375; 97161; 99285; A9270; G0378; J0696; J1650; J1815; J3475; J7030; Q9967

== ENCOUNTER 2024-01-02 11:38 | Observation (INO) | payer MEDICARE, SELFPAY ==
[2024-01-02] VITALS (10 sets, daily range): BP systolic 126–142; BP diastolic 67–80; PULSE 63–86; RESP 16–20; TEMP 36.3–36.4; O2SAT 94–100; BMI 33.1
--- NOTE | ~2024-01-02 | MR_ITS ---
MR brain/brain stem wo/w con Ordering provider: Funmilayo Butterfield MD History: 73 years Female with . encephalopathy . Comparison: CT head performed yesterday. Technique: MRI brain was performed with and without contrast. 19 mL MultiHance were injected. FINDINGS: BONES: Normal. CRANIOCERVICAL JUNCTION: normal. PITUITARY: Normal. MAJOR INTRACRANIAL VESSELS: Normal flow void. OPTIC NERVES AND CRANIAL NERVES VII AND VIII COMPLEXES: Grossly normal. BRAIN PARENCHYMA AND CSF SPACES: Mild nonspecific T2 white matter hyperintensities are seen in a stuart ateral periventricular and deep white matter distribution which are likely related to chronic ischemi c small vessel disease. Mild diffuse cortical atrophy. The brainstem and cerebellum are normal. No ac [place] or chronic intracranial hemorrhage. No extra axial fluid collections. Diffusion weighted and ADC mapping images reveal no recent ischemia. No midline shift or mass effect. No abnormal contrast enhan cement. dominant left vertebral artery. PARANASAL SINUSES: Normal. MASTOIDS: Normal SUPERFICIAL/SURROUNDING SOFT TISSUES: Normal. IMPRESSION: 1. Mild deep white matter ischemic changes. Otherwise, normal. 2. No abnormal enhancement. Reviewed, dictated and finalized at location A.
--- NOTE | ~2024-01-02 | CT_ITS ---
EXAMINATION: CT brain wo con DATE: 01/02/2024 12:51 INDICATION: Altered mental status TECHNIQUE: Computed tomography (CT) of the head was performed without intravenous contrast. Sagittal and coronal reconstructions were performed. The mA was adjusted according to patient size. Iterative reconstruction technique was employed. The dose-length product was 605.33 mGy-cm. COMPARISON: head CT dated 12/22/2023 FINDINGS: No acute intracranial hemorrhage, acute infarction or abnormal extra axial fluid collection. There is unchanged mild scattered white matter hypoattenuation consistent with chronic small vessel ischemic disease. Ventricles are normal and symmetric. No mass/mass effect. Changes of bilateral intraocular lens replacement. The orbits, paranasal sinuses and mastoid air cells are normal. IMPRESSION: 1. Unchanged mild scattered white matter hypoattenuation consistent with chronic small vessel ischemi c disease. No acute intracranial process. Reviewed, dictated and finalized at location A. IMPRESSION: 1. Unchanged mild scattered white matter hypoattenuation consistent with chroni c small vessel ischemic disease. No acute intracranial process.
--- NOTE | ~2024-01-02 | XR_ITS ---
EXAMINATION: XR chest 1V portable DATE: 01/02/2024 12:22 INDICATION: Weakness post recent urinary tract infection TECHNIQUE: frontal view of the chest was obtained. COMPARISON: Chest radiograph dated 12/22/2023 FINDINGS: The lungs are clear with no focal airspace opacities, pulmonary edema, pleural effusion or pneumothor ax. The cardiomediastinal silhouette is normal. IMPRESSION: 1. No acute cardiopulmonary disease. Reviewed, dictated and finalized at location A.
--- NOTE | 2024-01-02 11:44 | ECG_ITS ---
Test Date: 2024-01-02 11:43:15 Measurements Intervals Galliano Rate: 85 P: -80 WI: 118 QRS: -31 QRSD: 83 T: 56 QT: 362 QTc: 432 Interpretive Statements JUNCTIONAL RHYTHM PATTERN CONSISTENT WITH PULMONARY DISEASE INFERIOR MYOCARDIAL INFARCTION , PROBABLY OLD [40+ ms Q WAVE AND/OR ST/T ABNORMALITY IN II/aVF] No previous ECG available for comparison Electronically Signed On 01-03-2024 16:09:21 CDT by Pravin Henry M.D.
[2024-01-02 12:17] LABS: Basophils Absolute Auto 0.1 K/mm3 (0.0-0.1); Basophils Percent Auto 0.8 % (0.2-1.2); Eosinophils Absolute Auto 0.1 K/mm3 (0-0.3); Eosinophils Percent Auto 1.2 % (0-4.4); Hematocrit 39.7 % (37.0-47.0); Hemoglobin 12.6 g/dL (12.0-15.0); Immature Granulocyte Absolute 0.03 K/mm3 (0.00-0.031); Immature Granulocyte Percent A 0.3 % (0-0.5); Lymphocytes Absolute Auto 3.85 K/mm3 (0.9-3.2); Lymphocytes Percent Auto 41.6 % (18.3-44.2); Mean Corpuscular HGB Conc 31.7 g/dl (32-36); Mean Corpuscular Hemoglobin 27.2 pg (26-34); Mean Corpuscular Volume 85.7 fl (80-100); Mean Platelet Volume 10.7 fl (7.4-10.4); Monocytes Absolute Auto 0.8 K/mm3 (0.1-0.6); Monocytes Percent Auto 8.4 % (2.6-8.5); Neutrophils Absolute Auto 4.4 K/mm3 (1.3-6.7); Neutrophils Percent Auto 47.7 % (45.5-73.1); Platelet Count Result 323 k/mm3 (150-375); Red Blood Count 4.63 M/mm3 (4.2-5.4); Red Cell Distribution Width 14.6 % (11.5-14.5); White Blood Count 9.3 K/mm3 (4.5-10.0)
[2024-01-02 12:18] LABS: Appearance Urine Clear (Clear); Bilirubin Urine Negative (Negative); Blood Urine Negative (Negative); Color Urine Yellow (Yellow); Glucose Urine UA 3+ mg/dL (Negative); Ketones Urine Negative (Negative); Leukocyte Esterase Ur Negative LEU/UL (Negative); Nitrate Urine Negative (Negative); Protein Urine Negative (Negative); Specific Grav Ur 1.018 (1.001-1.035); Urobilinogen Urine 0.2 mg/dL (<2.0)
--- NOTE | 2024-01-02 12:18 | ED.FALL ---
HPI - Fall General Chief Complaint: Fall Stated Complaint: ground level fall History of Present Illness HPI Narrative: Patient is a 73-year-old female who presents to the emergency department this afternoon from home due to concern for recurrent falls and failure to thrive. Patient was recently treated for urinary tract infection and at that time family members did state that she was a bit confused and kind of presenting similar to the way that she was presenting today. They were concerned that she keeps falling at home and she lives at home with her who can no longer help care for her as he can not pick her up. Patient is answering all my questions appropriately, is alert and oriented to person, place and situation. She denies any pain at this time. No additional symptoms or concerns. Related Data Home Medications Medication Instructions Recorded Confirmed venlafaxine 75 mg capsule,extended 75 mg PO DAILY 09/08/19 12/23/23 release 24 hr (Effexor XR) metoprolol succinate 25 mg 25 mg PO DAILY 12/23/23 12/23/23 tablet,extended release 24 hr (Toprol XL) rosuvastatin 10 mg tablet 10 mg PO DAILY 12/23/23 12/23/23 Allergies Allergy/AdvReac Type Severity Reaction Status Date / Time No Known Allergies Allergy Verified 01/02/24 11:49 Review of Systems Review of Systems: All systems are reviewed and are negative unless stated otherwise in the HPI. [facility] Past Medical History Medical History Chronic nausea Depression Essential tremor Gastro-esophageal reflux disease without esophagitis Gastroparesis History of colon polyps Hyperlipidemia associated with type 2 diabetes mellitus Hypothyroidism MRSA infection Other hyperlipidemia Type 2 diabetes mellitus Vitamin D deficiency, unspecified Surgical History Surgical History History of cataract extraction with lens replacement History of cholecystectomy History of colonoscopy Diverticular disease noted in 2010. Benign colon polyps in 2018. History of esophagogastroduodenoscopy Hiatal hernia, gastritis, multiple fundic polyps. History of hernia repair (10/2018) Incarcerated ventral hernia repair with mesh. History of tubal ligation Family History Family History Mother Family history of malignant neoplasm Patient's mother is Father Patient's father is Cerebrovascular accident Asthma History of blood clots Diabetes mellitus Social History Social History Social History: Surrogate decision maker: Kenroy Castanon, spouse. Code status: Full code. Smoking packs per day: 2 Smoking cigarettes per day: 40.0 Years smoked: 25 Smoking pack-years: 50.00 Smoking status: Former smoker Tobacco type: cigarettes Second hand tobacco smoke exposure: Yes Smoking end date: 07/06/13 Alcohol intake: never Substance use: never Substance use type: does not use Do You Feel Safe in your Home?: Yes Lack of Transportation: No Lack of Food: Never True Current Housing: I Have Housing Concerned About Future Housing: No Difficulty Paying Gas/Electric Bills: No Difficulty Paying for Meds: No Currently Unemployed: No Education: High School Diploma/GED Difficulty w/ Childcare or Family Care: No Spiritual care concerns: No Exam Narrative: General: Alert, awake, afebrile, in no acute distress. HEENT: PERRL, no rhinorrhea, no post nasal drip, oropharynx clear. Cardiovascular: Regular rate and rhythm, no murmurs, rubs or gallops, no peripheral edema. Respiratory: Clear to auscultation bilaterally, no tachypnea, no wheezing, no rhonchi, no rubs, no respiratory distress. Abdomen: Soft, nontender, nondistended, no rebound, no guarding, no peritoneal signs. Musculoskeletal:
[2024-01-02 12:21] LABS: Add Urine Microscopic? NO
[2024-01-02 12:29] LABS: Alanine Aminotransferase 21 U/L (6-35); Alkaline Phosphatase 66 U/L (38-126); Anion Gap 10 mmol/L (4-12); Aspartate Amino Transferase 29 U/L (14-36); Bilirubin,Total 0.6 mg/dL (0.2-1.3); Blood Urea Nitrogen 17 mg/dL (7-17); Calcium 9.1 mg/dL (8.4-10.2); Carbon Dioxide 25 mmol/L (22-30); Chloride 102 mmol/L (98-107); Estimated CRCL calculation 73 ml/min; Estimated Glomerular Filt Rate > 60; Glucose 293 mg/dL (65-110); Magnesium 1.4 mg/dL (1.6-2.3); Sodium 137 mmol/L (137-145)
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
--- NOTE | 2024-01-02 15:30 | ADMGEN ---
This patient, Brittaney Castanon, was admitted to Medical Room 251-. Patient/family oriented to hospital policies and general routines including ID bracelet, bed and alarms, visiting hours, pain management, procedures, bathroom and other care routines, personal items, smoking policy, room service/diet, and visiting hours. Information on how to activate the Rapid Response Team has been discussed. Patient/Family are encouraged to report perceived risks to care and to ask questions if they do not understand what they are told or what they should do.
[2024-01-02] MEDS: MAGNESIUM SULF 1 GM/D5W 100 ML 1 GM/100 ML BAG IVPB (15:35)
[2024-01-02 17:02] LABS: Glucose Point of Care 243 mg/dl (65-105)
[2024-01-02] MEDS: INSULIN ASPART (*BKC) 100 UNITS/ML SUB-Q (17:08)
--- NOTE | 2024-01-02 17:14 | PCRCNOTE ---
RT spoke to patient. Patient states she doesn't wear a CPAP/ BIPAP at home. RN aware.
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
[2024-01-02 20:20] LABS: Glucose Point of Care 177 mg/dl (65-105)
[2024-01-03] MEDS: INSULIN GLARGINE (*BKC) 100 UNITS/ML 20 UNITS SUB-Q ×2 (00:29→20:56)
[2024-01-03 00:38] VITALS: BP 128/94; PULSE 62; RESP 14; TEMP 36.4; O2SAT 99
[2024-01-03 00:40] LABS: Glucose Point of Care 207 mg/dl (65-105)
[2024-01-03 03:08] LABS: Free T4 Free Thyroxine Reflex 0.65 ng/dL (0.78-2.19)
[2024-01-03 03:53] LABS: Hematocrit 39.5 % (37.0-47.0); Hemoglobin 12.7 g/dL (12.0-15.0); Mean Corpuscular HGB Conc 32.2 g/dl (32-36); Mean Corpuscular Hemoglobin 27.5 pg (26-34); Mean Corpuscular Volume 85.7 fl (80-100); Mean Platelet Volume 10.3 fl (7.4-10.4); Platelet Count Result 308 k/mm3 (150-375); Red Blood Count 4.61 M/mm3 (4.2-5.4); Red Cell Distribution Width 14.8 % (11.5-14.5); White Blood Count 9.5 K/mm3 (4.5-10.0)
[2024-01-03 04:29] LABS: Anion Gap 9 mmol/L (4-12); Blood Urea Nitrogen 18 mg/dL (7-17); Calcium 8.9 mg/dL (8.4-10.2); Carbon Dioxide 26 mmol/L (22-30); Chloride 105 mmol/L (98-107); Estimated CRCL calculation 71 ml/min; Estimated Glomerular Filt Rate > 60; Glucose 200 mg/dL (65-110); Magnesium 1.9 mg/dL (1.6-2.3); Sodium 140 mmol/L (137-145)
[2024-01-03] MEDS: LEVOTHYROXINE SODIUM 125 MCG TABLET PO (05:45)
[2024-01-03 07:39] LABS: Glucose Point of Care 193 mg/dl (65-105)
[2024-01-03 07:40] VITALS: O2SAT 92
[2024-01-03] MEDS: VENLAFAXINE HCL XR 75 MG CAP.ER.24H PO (10:13)
[2024-01-03] MEDS: CELECOXIB 200 MG CAPSULE PO (10:13)
[2024-01-03] MEDS: glipiZIDE XL 5 MG TABCR 10 MG PO (10:13)
[2024-01-03 10:14] VITALS: PULSE 64
[2024-01-03] MEDS: METOPROLOL SUCCINATE EXT REL 25 MG TABCR PO (10:14)
[2024-01-03] MEDS: ATORVASTATIN 40 MG TABLET PO (10:14)
[2024-01-03 10:17] VITALS: BP 116/63; PULSE 64; RESP 16; TEMP 36.6; O2SAT 98
[2024-01-03] MEDS: ROSUVASTATIN 10 MG TABLET PO (10:17)
[2024-01-03 11:38] LABS: Glucose Point of Care 224 mg/dl (65-105)
[2024-01-03] MEDS: INSULIN ASPART (*BKC) 100 UNITS/ML SUB-Q (11:42)
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
[2024-01-03 14:54] LABS: Acetaminophen < 10 ug/mL (10-30); Salicylate < 1.0 mg/dL (2-20)
[2024-01-03] MEDS: ENOXAPARIN 40 MG/0.4 ML SYRINGE SUB-Q (16:57)
[2024-01-03 17:03] VITALS: BP 136/63; PULSE 60; RESP 20; TEMP 36.3; O2SAT 98
[2024-01-03 17:23] LABS: Glucose Point of Care 189 mg/dl (65-105)
[2024-01-03] MEDS: PANTOPRAZOLE 40 MG TABLET PO (20:56)
[2024-01-03 21:57] LABS: Glucose Point of Care 178 mg/dl (65-105)
[2024-01-03] MEDS: ONDANSETRON INJ 4 MG/2 ML VIAL IV PUSH (23:33)
[2024-01-04] VITALS: BP 134/73; PULSE 81; RESP 20; TEMP 36.6; O2SAT 98
[2024-01-04] MEDS: LEVOTHYROXINE SODIUM 125 MCG TABLET PO (06:02)
[2024-01-04] MEDS: SODIUM CHLORIDE 0.9% IV 1,000 ML 999 ML IV CONT (06:02)
[2024-01-04 07:36] LABS: Glucose Point of Care 225 mg/dl (65-105)
[2024-01-04 08:00] VITALS: BP 113/57; PULSE 65; RESP 22; TEMP 36.4; O2SAT 97
[2024-01-04] MEDS: INSULIN ASPART (*BKC) 100 UNITS/ML SUB-Q ×3 (08:00→20:12)
[2024-01-04 08:01] VITALS: PULSE 65
[2024-01-04] MEDS: ROSUVASTATIN 10 MG TABLET PO (08:01)
[2024-01-04] MEDS: METOPROLOL SUCCINATE EXT REL 25 MG TABCR PO (08:01)
[2024-01-04] MEDS: CELECOXIB 200 MG CAPSULE PO (08:01)
[2024-01-04] MEDS: ATORVASTATIN 40 MG TABLET PO (08:01)
[2024-01-04] MEDS: VENLAFAXINE HCL XR 75 MG CAP.ER.24H PO (08:02)
[2024-01-04] MEDS: ENOXAPARIN 40 MG/0.4 ML SYRINGE SUB-Q (08:02)
[2024-01-04] MEDS: glipiZIDE XL 5 MG TABCR 10 MG PO (08:02)
[2024-01-04 12:07] LABS: Glucose Point of Care 209 mg/dl (65-105)
[2024-01-04 14:00] LABS: Rapid Plasma Reagin Non-Reactive (NonReactive)
--- NOTE | 2024-01-04 14:44 | PC.NURSE ---
Patient cleared medically by Dr. Martinez.
[2024-01-04 16:00] VITALS: BP 121/61; PULSE 62; RESP 18; TEMP 36.6; O2SAT 95
[2024-01-04 16:53] LABS: Glucose Point of Care 138 mg/dl (65-105)
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
[2024-01-04 20:00] VITALS: BP 152/65; PULSE 74; RESP 20; TEMP 36.2; O2SAT 99
[2024-01-04] MEDS: INSULIN GLARGINE (*BKC) 100 UNITS/ML 20 UNITS SUB-Q (20:13)
[2024-01-04] MEDS: PANTOPRAZOLE 40 MG TABLET PO (20:14)
[2024-01-04 20:18] LABS: Glucose Point of Care 212 mg/dl (65-105)
[2024-01-04 21:02] LABS: Amphetamine Screen Urine Negative (Negative); Barbiturate Screen Urine Negative (Negative); Benzodiazepines Screen Urine Positive (Negative); Cannabinoid Screen Urine Negative (Negative); Cocaine Screen Urine Negative (Negative); Methadone Screen Urine Negative (Negative); Opiate Screen Urine Negative (Negative); Phencyclidine Screen Urine Negative (Negative)
[2024-01-05] VITALS: BP 138/50; PULSE 68; RESP 18; TEMP 36.5; O2SAT 98
--- NOTE | 2024-01-05 02:15 | PC.NURSE ---
This patient, Brittaney Castanon, was transferred to [facility] on 01/05/24 at 0210. Personal belongings sent with patient. Report given to Víctor BAE. Appropriate documentation sent with patient.
[2024-01-05 05:49] VITALS: BP 122/52; PULSE 60; RESP 18; TEMP 36.4; O2SAT 96
[2024-01-05] MEDS: LEVOTHYROXINE SODIUM 125 MCG TABLET PO (05:51)
[2024-01-05 08:04] LABS: Glucose Point of Care 113 mg/dl (65-105)
[2024-01-05 09:00] VITALS: PULSE 121
[2024-01-05] MEDS: METOPROLOL SUCCINATE EXT REL 25 MG TABCR PO (09:00)
[2024-01-05] MEDS: VENLAFAXINE HCL XR 75 MG CAP.ER.24H PO (09:00)
[2024-01-05] MEDS: ROSUVASTATIN 10 MG TABLET PO (09:01)
[2024-01-05] MEDS: glipiZIDE XL 5 MG TABCR 10 MG PO (09:01)
[2024-01-05] MEDS: ENOXAPARIN 40 MG/0.4 ML SYRINGE SUB-Q (09:01)
[2024-01-05] MEDS: CELECOXIB 200 MG CAPSULE PO (09:01)
[2024-01-05] MEDS: ATORVASTATIN 40 MG TABLET PO (09:01)
[2024-01-05 11:34] LABS: Glucose Point of Care 230 mg/dl (65-105)
[2024-01-05] MEDS: INSULIN ASPART (*BKC) 100 UNITS/ML SUB-Q (11:34)
[2024-01-05 12:00] VITALS: BP 129/59; PULSE 53; RESP 18; TEMP 35.9; O2SAT 97
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
[2024-01-05 15:07] LABS: SARS-CoV-2 RNA PCR Negative (Negative)
== END 2024-01-05 16:45 ==
LOC: ANHED 13:31 → ANHICU 01-04 16:23 → ANH3MEDSUR 01-05 13:52 → ANH2MED 01-06 07:06 → ANH3MEDSUR 01-06 07:06 → ANHICU 01-06 07:06
PROVIDERS: General Practice; Physician Assistant; Admitting Provider Internal Medicine; Emergency Provider Emergency Medicine; PCP Internal Medicine; Visit Provider Internal Medicine
DX: R45.86 Emotional lability (principal); R62.7 Adult failure to thrive; R45.851 Suicidal ideations; E83.42 Hypomagnesemia; R53.1 Weakness; R29.6 Repeated falls; F33.9 Major depressive disorder, recurrent, unspecified; E78.2 Mixed hyperlipidemia; E03.9 Hypothyroidism, unspecified; G25.0 Essential tremor; K21.9 Gastro-esophageal reflux disease without esophagitis; E11.43 Type 2 diabetes mellitus with diabetic autonomic (poly)neuropathy; K31.84 Gastroparesis; Z68.32 Body mass index [BMI] 32.0-32.9, adult; Z86.14 Personal history of Methicillin resistant Staphylococcus aureus infection; Z87.891 Personal history of nicotine dependence; Z79.84 Long term (current) use of oral hypoglycemic drugs; Z79.85 Long-term (current) use of injectable non-insulin antidiabetic drugs; Z79.4 Long term (current) use of insulin; Z11.52 Encounter for screening for COVID-19; Z79.899 Other long term (current) drug therapy
CPT/HCPCS: 36415; 70450; 70553; 71045; 80048; 80053; 80307; 81003; 82607; 82948; 83735; 84439; 84443; 85025; 85027; 86592; 87635; 93005; 96372; 96374; 96375; 97110; 97116; 97162; 97165; 97530; 97535; 99285; A9270; A9577; G0378; J1650; J1815; J2405; J3475; J7030

== ENCOUNTER 2025-05-15 16:55 | Inpatient (IN) | payer MEDICARE, SELFPAY ==
[2025-05-15] VITALS (33 sets, daily range): BP systolic 127–162; BP diastolic 45–131; PULSE 66–87; RESP 16–25; TEMP 36.2–37.1; O2SAT 95–100; BMI 30.2
--- NOTE | ~2025-05-15 | XR_ITS ---
XR chest 1V portable INDICATION:weakness . REFERENCE: None FINDINGS: A single AP of the chest demonstrates normal heart size. The lungs are clear. There is no evidence of pneumothorax or pleural effusion. IMPRESSION: No acute pulmonary findings. Reviewed, dictated and finalized at location S. [employer]
--- NOTE | 2025-05-15 17:36 | ECG_ITS ---
Test Date: 2025-05-15 18:41:57 Measurements Intervals [place] Rate: 71 P: -83 PA: 142 QRS: -17 QRSD: 85 T: 8 QT: 391 QTc: 426 Interpretive Statements sinus RHYTHM ARTIFACT ABNORMAL RHYTHM ECG Electronically Signed On 05-16-2025 17:30:37 [employer] PERSON by Forrest Romano M.D.
[2025-05-15 17:56] LABS: Hematocrit 43.2 % (37.0-47.0); Hemoglobin 14.3 g/dL (12.0-15.0); Immature Granulocyte Percent A 0.5 % (0-0.5); Lymphocytes Absolute Auto 1.25 K/mm3 (0.9-3.2); Mean Corpuscular HGB Conc 33.1 g/dl (32-36); Mean Corpuscular Hemoglobin 28.0 pg (26-34); Mean Corpuscular Volume 84.5 fl (80-100); Nucleated Red Blood Cells Absolute Auto 0.000 K/mm3 (0.0-0.012); Nucleated Red Blood Cells Perc 0.0 % (0.0-0.2); Platelet Count Result 319 k/mm3 (150-375); Red Blood Count 5.11 M/mm3 (4.2-5.4); White Blood Count 10.7 K/mm3 (4.5-10.0)
[2025-05-15 18:06] LABS: Alanine Aminotransferase 29 U/L (6-35); Albumin Level 3.9 g/dL (3.5-5.1); Alkaline Phosphatase 87 U/L (38-126); Anion Gap 16 mmol/L (4-12); Aspartate Amino Transferase 31 U/L (14-36); Bilirubin,Total 0.9 mg/dL (0.2-1.3); Blood Urea Nitrogen 24 mg/dL (7-17); Calcium 9.4 mg/dL (8.4-10.2); Carbon Dioxide 18 mmol/L (22-30); Chloride 96 mmol/L (98-107); Estimated Glomerular Filt Rate > 60; Glucose 411 mg/dL (65-110); Potassium 4.0 mmol/L (3.4-5.0); Sodium 130 mmol/L (137-145); Total Protein 8.1 g/dL (6.3-8.2)
[2025-05-15 18:32] LABS: Add Urine Microscopic? YES; Appearance Urine Turbid (Clear); Glucose Urine UA 3+ mg/dL (Negative); Leukocyte Esterase Ur 2+ LEU/UL (Negative); Need Manual Microscopic Reviewed; Nitrate Urine Negative (Negative); Specific Grav Ur 1.032 (1.001-1.035)
--- NOTE | 2025-05-15 19:07 | ED.WEAKNESS ---
HPI - Weakness General Chief complaint: Weakness Stated complaint: weakness Time Seen by Provider: 05/15/25 18:58 Source: patient and EMS Mode of arrival: EMS Limitations: no limitations History of Present Illness HPI Narrative: This is a 74-year-old female with history of diabetes, hypothyroidism, dementia who presents the ED for lower abdominal pain and weakness. Patient states for the past day, she has been having dysuria with suprapubic abdominal pain. Denies nausea, vomiting, chest pain, shortness of breath. She has been feeling weak as well did call ambulance for assistance. Denies fevers, chills. No known sick contacts. Related Data Home Medications ?Medication ?Instructions ?Recorded ?Confirmed ?Last Taken ?Type venlafaxine 75 mg capsule,extended 75 mg PO DAILY 09/08/19 01/26/24 12/21/23 History release 24 hr (Effexor XR) trazodone 50 mg tablet 50 mg PO QHS PRN 01/26/24 01/26/24 Unknown History Allergies Allergy/AdvReac Type Severity Reaction Status Date / Time No Known Allergies Allergy Verified 05/15/25 23:31 Review of Systems Review of Systems: Gen.: Denies fevers or chills Eyes: Denies eye pain or visual change ENT: Denies congestion Respiratory: Denies shortness of breath or cough CV: Denies chest pain or palpitations GI: Denies abdominal pain nausea, emesis or diarrhea as per HPI Musculoskeletal: Denies back pain or muscle pain Neuro: As per HPI Skin: Denies rash Except as documented, all other systems reviewed and negative PMFSH Past Medical History Medical History Hypertension Colon polyps Insulin dependent type 2 diabetes mellitus Vitamin D deficiency Hyperlipidemia MRSA infection Essential tremor Gastroparesis Depression Gastro-esophageal reflux disease without esophagitis Hypothyroidism Surgical History Surgical History History of esophagogastroduodenoscopy Hiatal hernia, gastritis, multiple fundic polyps. History of tubal ligation History of cholecystectomy History of hernia repair (10/2018) Incarcerated ventral hernia repair with mesh. History of colonoscopy Diverticular disease noted in 2010. Benign colon polyps in 2018. History of cataract extraction with lens replacement Family History Family History Mother Family history of malignant neoplasm Patient's mother is Father Patient's father is Cerebrovascular accident Asthma History of blood clots Diabetes mellitus Social History Social History Social History: Surrogate decision maker: Kenroy Castanon, spouse. Code status: Full code. Smoking packs per day: 2 Smoking cigarettes per day: 40.0 Years smoked: 25 Smoking pack-years: 50.00 Smoking status: Never smoker Tobacco type: cigarettes Second hand tobacco smoke exposure: Yes Smoking end date: 07/06/13 Alcohol intake: never Substance use: never Substance use type: marijuana Do You Feel Safe in your Home?: Yes Lack of Transportation: No Lack of Food: Never True Current Housing: I Have Housing Concerned About Future Housing: No Difficulty Paying Gas/Electric Bills: No Difficulty Paying for Meds: No Currently Unemployed: No Education: Don't Know Difficulty w/ Childcare or Family Care: No Spiritual care concerns: No Exam Narrative: APPEARANCE: No acute distress, nontoxic, resting in bed EYES: EOMI HEENT: Normocephalic, atraumatic, OMM RESPIRATORY: No respiratory distress Clear to auscultation bilaterally with no rhonchi wheezing or rales. CARDIOVASCULAR: Regular rate and rhythm without murmurs rubs or gallops. ABDOMINAL: Soft, mild suprapubic tenderness to palpation, nondistended, no rebound or guarding MUSCULOSKELETAl: Moves all extremities. No clubbing, cyanosis or edema. NEURO: Awake and alert. Following commands, speech normal, no focal deficits SKIN:: Warm, dry. No rashes lesions or abrasions PSYCHIATRIC: Normal affect/mood, Course Vital Signs Vital signs: Vital Signs Temperature 98.7 F 05/15/25 16:56 Pulse Rate 87 05/15/25 16:56 Respiratory Rate 25 H 05/15/25 16:56 Blood Pressure 162/72 H 05/15/25 16:56 Pulse Oximetry 95 05/15/25 16:56 Oxygen Delivery Room Air 05/15/25 16:56 Temperature 97.2 F L 05/15/25 23:02 Pulse Rate 66 05/15/25 23:02 Respiratory Rate 18 05/15/25 23:02 Blood Pressure 148/57 H 05/15/25 23:02 Pulse Oximetry 97 05/15/25 23:02 Oxygen Delivery Room Air 05/15/25 16:56 MDM - Weakness MDM Narrative Medical decision making narrative: 74-year-old female Presenting for confusion and dysuria. On initial evaluation patient was in no acute distress afebrile, hemodynamic stable. Differentials include but are not limited to: CVA, TIA, ICH, meningitis, UTI, cancer, drug intoxication, hypoglycemia, electrolyte abnormality Notable exam findings: Mild suprapubic tenderness to palpation. AAO x2. Notable lab findings: Mild leukocytosis at 10.7. Mild hyponatremia at 130.. Lactic acidosis at 2.3. UA consistent with a UTI. Notable imaging findings: Chest x-ray showed no acute process. Patient's baseline is A/O times for that is only a x2 today. Likely due to UTI. Who based on prior sensitivities the patient did have Klebsiella UTI last year that was pansensitive. She was given a dose of Rocephin here in the ED. patient will require admission for acute metabolic encephalopathy due to UTI. Case was discussed with hospitalist who will admit the patient. Medical Records Attestation: I reviewed the patient's medical records. Lab Data Attestation: I reviewed the patient's lab results. 05/15/25 17:38 05/15/25 17:38 Labs: Lab Results 05/15/25 05/15/25 05/15/25 Range/Units 17:38 17:40 17:49 WBC 10.7 H (4.5-10.0) K/mm3 RBC 5.11 (4.2-5.4) M/mm3 Hgb 14.3 (12.0-15.0) g/dL Hct 43.2 (37.0-47.0) % MCV 84.5 (80-100) fl MCH 28.0 (26-34) pg MCHC 33.1 (32-36) g/dl RDW 14.1 (11.5-14.5) % Plt Count 319 (150-375) k/mm3 MPV 10.7 H (7.4-10.4) fl Immature Gran % (Auto) 0.5 (0-0.5) % Neut % (Auto) 76.9 H (45.5-73.1) % Lymph % (Auto) 11.7 L (18.3-44.2) % [place] % (Auto) 10.4 H (2.6-8.5) % Eos % (Auto) 0.1 (0-4.4) % Baso % (Auto) 0.4 (0.2-1.2) % Lymph # (Auto) 1.25 (0.9-3.2) K/mm3 [place] # (Auto) 1.1 H (0.1-0.6) K/mm3 Eos # (Auto) 0.0 (0-0.3) K/mm3 Baso # (Auto) 0.0 (0.0-0.1) K/mm3 Abs Immat Gran (auto) 0.05 H (0.00-0.031) K/mm3 Absolute Neuts (auto) 8.2 H (1.3-6.7) K/mm3 Absolute Nucleated RBC 0.000 (0.0-0.012) K/mm3 Nucleated RBC % 0.0 (0.0-0.2) % Sodium 130 L (137-145) mmol/L Potassium 4.0 (3.4-5.0) mmol/L Chloride 96 L (98-107) mmol/L Carbon Dioxide 18 L (22-30) mmol/L Anion Gap 16 H (4-12) mmol/L BUN 24 H (7-17) mg/dL Creatinine 0.83 (0.7-1.0) mg/dL Estim Creat Clear Calc Not Reportable Estimated GFR > 60 (59 - ) Glucose 411 H (65-110) mg/dL Lactic Acid 2.3 H (0.7-2.0) mmol/L Calcium 9.4 (8.4-10.2) mg/dL Total Bilirubin 0.9 (0.2-1.3) mg/dL AST 31 (14-36) U/L ALT 29 (6-35) U/L Alkaline Phosphatase 87 (38-126) U/L Total Creatine Kinase 299 H (30-135) U/L Total Protein 8.1 (6.3-8.2) g/dL Albumin 3.9 (3.5-5.1) g/dL Urine Color Yellow (Yellow) Urine Appearance Turbid H (Clear) Urine pH 5.0 (5.0-9.0) Ur Specific [place] 1.032 (1.001-1.035) Urine Protein 2+ H (Negative) mg/dL Urine Glucose (UA) 3+ H (Negative) mg/dL Urine Ketones 2+ H (Negative) mg/dL Ur Blood (Man) 3+ H (Negative) Urine Nitrate Negative (Negative) Urine Bilirubin Negative (Negative) Urine Urobilinogen 1.0 (<2.0) mg/dL Add Ur Microanalysis Reviewed Leukocyte Esterase Rfl 2+ H (Negative) WARREN/UL Urine RBC 0-2 (0-2) /hpf Urine WBC >100 H (0-3) /hpf Ur Squamous Epith Cells None seen (Few) /hpf Urine Bacteria 4+ H /hpf Urine Casts 11-20 05/15/25 Range/Units 20:33 WBC (4.5-10.0) K/mm3 RBC (4.2-5.4) M/mm3 Hgb (12.0-15.0) g/dL Hct (37.0-47.0) % MCV (80-100) fl MCH (26-34) pg MCHC (32-36) g/dl RDW (11.5-14.5) % Plt Count (150-375) k/mm3 MPV (7.4-10.4) fl Immature Gran % (Auto) (0-0.5) % Neut % (Auto) (45.5-73.1) % Lymph % (Auto) (18.3-44.2) % [place] % (Auto) (2.6-8.5) % Eos % (Auto) (0-4.4) % Baso % (Auto) (0.2-1.2) % Lymph # (Auto) (0.9-3.2) K/mm3 [place] # (Auto) (0.1-0.6) K/mm3 Eos # (Auto) (0-0.3) K/mm3 Baso # (Auto) (0.0-0.1) K/mm3 Abs Immat Gran (auto) (0.00-0.031) K/mm3 Absolute Neuts (auto) (1.3-6.7) K/mm3 Absolute Nucleated RBC (0.0-0.012) K/mm3 Nucleated RBC % (0.0-0.2) % Sodium (137-145) mmol/L Potassium (3.4-5.0) mmol/L Chloride (98-107) mmol/L Carbon Dioxide (22-30) mmol/L Anion Gap (4-12) mmol/L BUN (7-17) mg/dL Creatinine (0.7-1.0) mg/dL Estim Creat Clear Calc Estimated GFR (59 - ) Glucose (65-110) mg/dL Lactic Acid 1.4 (0.7-2.0) mmol/L Calcium (8.4-10.2) mg/dL Total Bilirubin (0.2-1.3) mg/dL AST (14-36) U/L ALT (6-35) U/L Alkaline Phosphatase (38-126) U/L Total Creatine Kinase (30-135) U/L Total Protein (6.3-8.2) g/dL Albumin (3.5-5.1) g/dL Urine Color (Yellow) Urine Appearance (Clear) Urine pH (5.0-9.0) Ur Specific [place] (1.001-1.035) Urine Protein (Negative) mg/dL Urine Glucose (UA) (Negative) mg/dL Urine Ketones (Negative) mg/dL Ur Blood (Man) (Negative) Urine Nitrate (Negative) Urine Bilirubin (Negative) Urine Urobilinogen (<2.0) mg/dL Add Ur Microanalysis Leukocyte Esterase Rfl (Negative) WARREN/UL Urine RBC (0-2) /hpf Urine WBC (0-3) /hpf Ur Squamous Epith Cells (Few) /hpf Urine Bacteria /hpf Urine Casts Imaging Data Attestation: I personally reviewed and interpreted this imaging study as follows: My impression: Chest x-ray: Normal cardiac silhouette, no consolidations, no pleural effusions, no pulmonary vascular congestion ECG Data EKG #1: Attestation: I personally reviewed and interpreted this ECG as follows: ECG completion date: 05/15/25 ECG completion time: 18:41 Interpretation: Significant artifact, normal sinus rhythm, borderline left axis deviation, poor R-wave progression, no acute ST or T-wave changes Discharge Plan Discharge Clinical Impression: Acute UTI, Acute metabolic encephalopathy, Acute hyponatremia, Acute hyperglycemia Patient Disposition: Still a Patient Condition: Stable
[2025-05-15] MEDS: SODIUM CHLORIDE 0.9% IV 1,000 ML 999 ML IV CONT ×2 (19:11→22:13)
[2025-05-15 19:32] LABS: Creatine Kinase 299 U/L (30-135)
[2025-05-15] MEDS: cefTRIAXone 1 GM in SODIUM CHLORIDE 0.9% IV 50 ML 100 ML IVPB (20:21)
[2025-05-15] MEDS: SODIUM CHLORIDE 0.9% IV 1,000 ML 150 ML IV CONT (22:14)
[2025-05-15] MEDS: INSULIN HUMAN REGULAR (*BKC) 100 UNITS/ML SUB-Q (22:26)
--- NOTE | 2025-05-15 22:30 | WPCEDHO ---
ED Hand Off Checklist All vitals saved:Yes IV Site documented:Yes All med administrations documented:Yes Triage Note Triage Note Pt c/o weakness. Family states 05/15/25 16:56 she fell off couch onto the floor . EMS states pt had BM all over floor at home and in EMS. Allergies No Known Allergies Allergy (Verified 01/26/24 12:54) Family History (Last Reviewed 05/15/25 @ 19:08 by Zacarias Sharif DO) Mother Family history of malignant neoplasm Patient's mother is Father Patient's father is Cerebrovascular accident Asthma History of blood clots Diabetes mellitus Active Medications including assessments/comments Sodium Chloride (Normal Saline Iv) 1,000 mls @ 150 mls/hr IV CONT .Q6H40M STA Stop: 05/16/25 03:52 Last Admin: 05/15/25 22:14 Dose: 150 mls/hr Documented By: MOHSEN Infusion/Titration Document 05/15/25 22:14 MOHSEN (Rec: 05/15/25 22:14 MOHSEN [id number]) Intake IV Site Peripheral Access Right Forearm Container Volume 1,000 Waste Amount 0 Dosing Infusion Rate 150 Cumulative Dose Not Applicable Increase/Decrease Started Elapsed Time Elapsed Time ( 0m minutes) Administered/Completed Medications Discontinued Medications Sodium Chloride (Normal Saline Iv) 1,000 mls @ 999 mls/hr IV CONT .Q1H1M STA Stop: 05/15/25 20:01 Last Infusion: 05/15/25 22:27 Dose: Infused Documented By: Admin: 05/15/25 19:11 Dose: 999 mls/hr Documented By: DAMIAN Ceftriaxone Sodium 1 gm/ (Sodium Chloride) 50 mls @ 100 mls/hr IVPB ONCE STA Stop: 05/15/25 19:35 Last Infusion: 05/15/25 22:27 Dose: Infused Documented By: Admin: 05/15/25 20:21 Dose: 100 mls/hr Documented By: MOHSEN Sodium Chloride (Normal Saline Iv) 1,000 mls @ 999 mls/hr IV CONT .Q1H1M STA Stop: 05/15/25 22:13 Last Admin: 05/15/25 22:13 Dose: 999 mls/hr Documented By: MOHSEN Insulin Human Regular (Insulin Human Regular (*Bkc) 100 Units/Ml) 5 units SUB-Q ONCE ONE Stop: 05/15/25 21:05 Last Admin: 05/15/25 22:26 Dose: 5 units Documented By: MOHSEN Co-signed By: ROSMERY Interventions/Assessments IV / Saline Lock, Insert Start: 05/15/25 16:50 Freq: Status: Active Protocol: Document 05/15/25 22:29 LLG (Rec: 05/15/25 22:30 LLG [id number]) IV Assessment Peripheral Access Left Forearm IV Catheter Access Initiated Before Arrival Catheter Gauge 20 IV Insertion 1 Attempts IV Site Assessment WNL IV Care and WNL Maintenance PA: Cardiovascular Assessment Start: 05/15/25 16:50 Freq: Status: Active Protocol: Document 05/15/25 17:14 CMM (Rec: 05/15/25 17:14 CMM [id number]) Cardiovascular Assessment Cardiovascular None Symptoms PA: Neurological Assessment Start: 05/15/25 16:50 Freq: Status: Active Protocol: Document 05/15/25 17:14 CMM (Rec: 05/15/25 17:14 CMM [id number]) Neurological Assessment Level of Alert Consciousness Arousable to Verbal Orientation Oriented to Person,Oriented to Place Neurological Weakness, General Symptoms Behavior Cooperative Ability to Maintain Normal Balance Facial Symmetry Symmetrical Ability to Swallow Normal Jonathan Coma Scale Eyes Open Verbal Oriented and Alert Motor Follows Commands Jonathan Coma Total 15 Score Last Vital Signs Temperature 98.7 F 05/15/25 16:56 Pulse Rate 74 05/15/25 22:01 Respiratory Rate 25 H 05/15/25 22:01 Pulse Oximetry 100 05/15/25 22:01 Blood Pressure 156/66 H 05/15/25 22:01 Blood Pressure Mean 93 05/15/25 22:01 Blood Pressure Position Sitting 05/15/25 16:56 Oxygen Delivery Room Air 05/15/25 16:56 Weight 90 kg 05/15/25 16:56 Last Result - Abnormals Only WBC 10.7 K/mm3 (4.5-10.0) H 05/15/25 17:38 MPV 10.7 fl (7.4-10.4) H 05/15/25 17:38 Neut % (Auto) 76.9 % (45.5-73.1) H 05/15/25 17:38 Lymph % (Auto) 11.7 % (18.3-44.2) L 05/15/25 17:38 [place] % (Auto) 10.4 % (2.6-8.5) H 05/15/25 17:38 [place] # (Auto) 1.1 K/mm3 (0.1-0.6) H 05/15/25 17:38 Abs Immat Gran (auto) 0.05 K/mm3 (0.00-0.031) H 05/15/25 17:38 Absolute Neuts (auto) 8.2 K/mm3 (1.3-6.7) H 05/15/25 17:38 Sodium 130 mmol/L (137-145) L 05/15/25 17:38 Chloride 96 mmol/L (98-107) L 05/15/25 17:38 Carbon Dioxide 18 mmol/L (22-30) L 05/15/25 17:38 Anion Gap 16 mmol/L (4-12) H 05/15/25 17:38 BUN 24 mg/dL (7-17) H 05/15/25 17:38 Glucose 411 mg/dL (65-110) H 05/15/25 17:38 Lactic Acid 2.3 mmol/L (0.7-2.0) H 05/15/25 17:40 Total Creatine Kinase 299 U/L (30-135) H 05/15/25 17:38 Urine Appearance Turbid (Clear) H 05/15/25 17:49 Urine Protein 2+ mg/dL (Negative) H 05/15/25 17:49 Urine Glucose (UA) 3+ mg/dL (Negative) H 05/15/25 17:49 Urine Ketones 2+ mg/dL (Negative) H 05/15/25 17:49 Ur Blood (Man) 3+ (Negative) H 05/15/25 17:49 Leukocyte Esterase Rfl 2+ WARREN/UL (Negative) H 05/15/25 17:49 Urine WBC >100 /hpf (0-3) H 05/15/25 17:49 Urine Bacteria 4+ /hpf H 05/15/25 17:49 Most Recent Suicide Severity Rating Suicide Severity Rating NO RISK INDICATED 05/15/25 16:56
--- NOTE | 2025-05-16 04:47 | P.HP_ITS ---
H&P: HPI History of Present Illness Date/Time: 05/16/25 04:47 Chief Complaint: Confused, ?had diarrhea all over the floor? Narrative: 74-year-old female with a past medical history of dementia, uncontrolled diabetes mellitus, hypothyroidism, GERD, cholecystectomy, umbilical hernia repair, and UTIs who presented to the ER via EMS because of confusion and having a incontinent diarrheal stool on the floor. Family reportedly the patient was more confused than at baseline the patient was alert oriented x2 in the ER. She was afebrile, with regular heart rate and blood pressure. EMS reported that the patient had a 2nd incontinent stool in route to the hospital. And she had 1 incontinent bowel movement in the ER. Unfortunately nursing staff did not send the stool down for testing. The patient herself has history of dementia. Her baseline orientation is not exactly known. At the time my evaluation she was oriented to person and place. She could not even gas as to the month or the year. She thought that the president was [place]. She did not know why she was in the hospital. She could not tell me how old she is. She knows that she is but does not know how many years she has been and she thinks that she only has 1 child but she was not sure. Review of Systems 2 Review of Systems: Limited due to the patient's history of dementia. [facility] Past Medical History Medical History (Updated 05/16/25 @ 09:56 by Dayan Rene DO) Obesity, Class I, BMI 30-34.9 Acute coronary syndrome Negative stress test in 2018, cardiac catheterization in November of 2021 demonstrated minimal disease with normal ejection fraction Dementia Essential tremor Type 2 diabetes mellitus Hypertension Colon polyps Vitamin D deficiency Hyperlipidemia MRSA infection Gastroparesis Depression Gastro-esophageal reflux disease without esophagitis Hypothyroidism Surgical History Surgical History (Updated 05/16/25 @ 05:13 by Dayan Rene DO) History of cardiac catheterization (11/04/21) History of esophagogastroduodenoscopy Hiatal hernia, gastritis, multiple fundic polyps. History of tubal ligation History of cholecystectomy History of hernia repair (10/2018) Incarcerated ventral hernia repair with mesh. History of colonoscopy Diverticular disease noted in 2010. Benign colon polyps in 2018. History of cataract extraction with lens replacement Family History Family History Mother Family history of malignant neoplasm Patient's mother is Father Patient's father is Cerebrovascular accident Asthma History of blood clots Diabetes mellitus Social History Social History (Updated 05/16/25 @ 04:57 by Dayan Rene DO) Social History: Surrogate decision maker: Kenroy Castanon, spouse. Code status: Full code. Smoking packs per day: 2 Smoking cigarettes per day: 40.0 Years smoked: 25 Smoking pack-years: 50.00 Smoking status: Never smoker Tobacco type: cigarettes Second hand tobacco smoke exposure: Yes Smoking end date: 07/06/13 Alcohol intake: never Substance use: never Substance use type: marijuana Do You Feel Safe in your Home?: Yes Lack of Transportation: No Lack of Food: Never True Current Housing: I Have Housing Concerned About Future Housing: No Difficulty Paying Gas/Electric Bills: No Difficulty Paying for Meds: No Currently Unemployed: No Education: Don't Know Difficulty w/ Childcare or Family Care: No Spiritual care concerns: No Meds Home Medications and Allergies Home Medications ?Medication ?Instructions ?Recorded ?Confirmed ?Type venlafaxine 75 mg capsule,extended 75 mg PO DAILY 11/2205/16/25 History release 24 hr (Effexor XR) doxepin 6 mg tablet 6 mg PO QHS PRN sleep #90 ta bs 11/05/23 05/16/25 Rx trazodone 50 mg tablet 50 mg PO QHS PRN sleep 01/2505/16/25 History rabeprazole 20 mg tablet,delayed 20 mg PO HS #90 tabs 07/05/24 05/16/25 Rx release celecoxib 200 mg capsule 200 mg PO DAILY #90 caps 05/16/25 Rx glipizide 10 mg tablet, extended 10 mg PO DAILY #90 ta bs 10/17/24 05/16/25 Rx release 24 hr levothyroxine 125 mcg tablet 125 mcg PO DAILY #90 tabs 01/10/25 05/16/25 Rx donepezil 5 mg tablet 5 mg PO DAILY 05/16/2505/16 History Allergies Allergy/AdvReac Type Severity Reaction Status Date / Time No Known Allergies Allergy Verified 05/15/25 23:31 Vital Signs Vital Signs - 24 hr 05/15/25 16:56 05/15/25 17:14 05/15/25 17:15 Temperature 98.7 F Pulse Rate 87 83 83 Respiratory Rate 25 H 22 H 23 H Blood Pressure 162/72 H 162/72 H Pulse Oximetry 95 96 96 Oxygen Delivery Room Air 05/15/25 17:30 05/15/25 17:31 05/15/25 17:56 Temperature Pulse Rate 83 83 77 Respiratory Rate 19 22 H 21 H Blood Pressure 154/59 H Pulse Oximetry 96 97 97 Oxygen Delivery 05/15/25 18:10 05/15/25 18:15 05/15/25 18:16 Temperature Pulse Rate 75 75 72 Respiratory Rate 17 23 H 25 H Blood Pressure 161/131 H Pulse Oximetry 98 99 100 Oxygen Delivery 05/15/25 18:30 05/15/25 18:32 05/15/25 18:45 Temperature Pulse Rate 72 73 72 Respiratory Rate 16 16 23 H Blood Pressure 159/53 H Pulse Oximetry 98 99 98 Oxygen Delivery 05/15/25 18:47 05/15/25 19:06 05/15/25 19:15 Temperature Pulse Rate 71 73 71 Respiratory Rate 22 H 20 22 H Blood Pressure 156/70 H Pulse Oximetry 98 100 100 Oxygen Delivery 05/15/25 19:17 05/15/25 19:31 05/15/25 19:32 Temperature Pulse Rate 75 73 72 Respiratory Rate 20 23 H 20 Blood Pressure 148/60 H 127/45 L Pulse Oximetry 100 99 99 Oxygen Delivery 05/15/25 19:46 05/15/25 19:47 05/15/25 20:00 Temperature Pulse Rate 73 74 72 Respiratory Rate 23 H 23 H 23 H Blood Pressure 128/51 L Pulse Oximetry 97 97 99 Oxygen Delivery 05/15/25 20:15 05/15/25 20:17 05/15/25 20:31 Temperature Pulse Rate 70 70 77 Respiratory Rate 23 H 22 H 19 Blood Pressure 147/61 H Pulse Oximetry 98 98 99 Oxygen Delivery 05/15/25 20:45 05/15/25 20:46 05/15/25 21:23 Temperature Pulse Rate 69 69 68 Respiratory Rate 22 H 22 H 22 H Blood Pressure 150/63 H Pulse Oximetry 98 98 98 Oxygen Delivery 05/15/25 21:31 05/15/25 21:32 05/15/25 21:49 Temperature Pulse Rate 66 68 70 Respiratory Rate 23 H 24 H 24 H Blood Pressure 143/62 H Pulse Oximetry 100 99 99 Oxygen Delivery 05/15/25 22:00 05/15/25 22:01 05/15/25 23:02 Temperature 97.2 F L Pulse Rate 78 74 66 Respiratory Rate 21 H 25 H 18 Blood Pressure 156/66 H 148/57 H Pulse Oximetry 98 100 97 Oxygen Delivery Exam 2 Narrative: Weight 87.7 kg BMI 30.3 Const: Other: Obese, no acute distress, lying in bed on her left side HENMT: Other: Head is normocephalic atraumatic, mucous membranes are moist, edentulous in upper and lower jaw, crowded posterior oropharynx Eyes: Other: Pupils are equal and reactive, no scleral icterus, no conjunctival pallor, bilateral lens implants noted Neck: Other: No JVD, large neck circumference Resp: Other: Clear to auscultation bilaterally, no increased work of breathing Cardio: Other: Regular rate, regular rhythm, 2+ bilateral radial pedal pulses, no JVD GI: Other: Soft, nontender, obese, normoactive bowel sounds, no organomegaly : Other: Pure wick catheter in place Skin: Other: Generalized pallor, non jaundice Neuro: Other: Alert oriented to person and place, she is unable to state the month or year she thinks the president is [place], she has no facial asymmetry, speech is clear and fluent she follows commands without difficulty Extrem: Other: No clubbing, cyanosis or edema, moves all extremities equally Psych: Other: Pleasantly confused, cooperative H&P: Results Labs Labs: Laboratory Tests 05/15/25 17:38 05/15/25 17:38 05/15/25 05/15/25 05/15/25 17:38 17:40 17:49 WBC 10.7 H RBC 5.11 Hgb 14.3 Hct 43.2 MCV 84.5 MCH 28.0 MCHC 33.1 RDW 14.1 Plt Count 319 MPV 10.7 H Immature Gran % (Auto) 0.5 Neut % (Auto) 76.9 H Lymph % (Auto) 11.7 L [place] % (Auto) 10.4 H Eos % (Auto) 0.1 Baso % (Auto) 0.4 Lymph # (Auto) 1.25 [place] # (Auto) 1.1 H Eos # (Auto) 0.0 Baso # (Auto) 0.0 Abs Immat Gran (auto) 0.05 H Absolute Neuts (auto) 8.2 H Absolute Nucleated RBC 0.000 Nucleated RBC % 0.0 Sodium 130 L Potassium 4.0 Chloride 96 L Carbon Dioxide 18 L Anion Gap 16 H BUN 24 H Creatinine 0.83 Estim Creat Clear Calc Not Reportable Estimated GFR > 60 Glucose 411 H POC Capillary Glucose Lactic Acid 2.3 H Calcium 9.4 Total Bilirubin 0.9 AST 31 ALT 29 Alkaline Phosphatase 87 Total Creatine Kinase 299 H Total Protein 8.1 Albumin 3.9 Urine Color Yellow Urine Appearance Turbid H Urine pH 5.0 Ur Specific [place] 1.032 Urine Protein 2+ H Urine Glucose (UA) 3+ H Urine Ketones 2+ H Ur Blood (Man) 3+ H Urine Nitrate Negative Urine Bilirubin Negative Urine Urobilinogen 1.0 Add Ur Microanalysis Reviewed Leukocyte Esterase Rfl 2+ H Urine RBC 0-2 Urine WBC >100 H Ur Squamous Epith Cells None seen Urine Bacteria 4+ H Urine Casts -05/15/25 05/15/25 05/15/25 20:33 22:19 23:05 WBC RBC Hgb Hct MCV MCH MCHC RDW Plt Count MPV Immature Gran % (Auto) Neut % (Auto) Lymph % (Auto) [place] % (Auto) Eos % (Auto) Baso % (Auto) Lymph # (Auto) [place] # (Auto) Eos # (Auto) Baso # (Auto) Abs Immat Gran (auto) Absolute Neuts (auto) Absolute Nucleated RBC Nucleated RBC % Sodium Potassium Chloride Carbon Dioxide Anion Gap BUN Creatinine Estim Creat Clear Calc Estimated GFR Glucose POC Capillary Glucose 343 H 352 H Lactic Acid 1.4 Calcium Total Bilirubin AST ALT Alkaline Phosphatase Total Creatine Kinase Total Protein Albumin Urine Color Urine Appearance Urine pH Ur Specific [place] Urine Protein Urine Glucose (UA) Urine Ketones Ur Blood (Man) Urine Nitrate Urine Bilirubin Urine Urobilinogen Add Ur Microanalysis Leukocyte Esterase Rfl Urine RBC Urine WBC Ur Squamous Epith Cells Urine Bacteria Urine Casts Impressions Chest X-Ray 05/15/25 18:16 IMPRESSION: No acute pulmonary findings. EKG: Rate with ectopic atrial rhythm QTC 426 cardiology interpretation pending Assessment and Plan Assessment and plan (1) Acute diarrhea: Code(s): R19.7 - Diarrhea, unspecified Status: Acute (2) Abnormal urinalysis: Code(s): R82.90 - Unspecified abnormal findings in urine Status: Acute (3) Acute metabolic encephalopathy: Code(s): G93.41 - Metabolic encephalopathy Status: Acute (4) Dementia: Qualifiers: Dementia behavioral or psychological symptom: without behavioral, psychotic, or mood disturbance or anxiety Dementia severity: moderate Dementia type: unspecified type Qualified Code(s): F03.B0 - Unspecified dementia, moderate, without behavioral disturbance, psychotic disturbance, mood disturbance, and anxiety Code(s): F03.90 - Unspecified dementia, unspecified severity, without behavioral disturbance, psychotic disturbance, mood disturbance, and anxiety Status: Acute (5) Type 2 diabetes mellitus with hyperglycemia, without long-term current use of insulin: Code(s): E11.65 - Type 2 diabetes mellitus with hyperglycemia Status: Acute (6) Pseudohyponatremia: Code(s): R79.89 - Other specified abnormal findings of blood chemistry Status: Acute (7) Hypothyroidism: Qualifiers: Hypothyroidism type: acquired Qualified Code(s): E03.9 - Hypothyroidism, unspecified Code(s): E03.9 - Hypothyroidism, unspecified Status: Acute Plan Patient has urinalysis suggestive of possible urinary tract infection is been started on Rocephin. Urine cultures have been obtained and are pending. Will repeat CBC. She does have chronic dementia her baseline mentation is uncertain. If she is more confused than baseline there could be a component of metabolic encephalopathy in fall. She also has acute diarrheal illness. It does not appear this patient been on any antibiotics as outpatient. If the patient has additional diarrheal stools will send for C diff testing and consider additional antibiotic therapy at that time. Currently patient's abdomen exam is benign except for some hyperactive bowel sounds. Will continue patient on IV fluid hydration. She received 2 L of bolus in the ER and another L at 150 mL an hour. Will give 1 more L at 100 mL an hour then re-evaluate fluid status. She does have appear to be intervascular volume depleted/dehydrated. This is likely due to a combination of chronically uncontrolled diabetes and diarrheal illness barium fluid management as discussed above. Patient's glucoses were in the 400s in the ER she received 5 units of IV insulin. Her repeat glucose was down to the 150s shortly after arrival to the medical floor. Initially Lantus had been ordered but given the rapid correction in the patient's glucoses Lantus was discontinued. Will change the patient's sliding scale insulin to moderate dose sliding scale insulin. Will change patient's diet to consistent carbohydrate. Hypoglycemia protocol has been ordered. Will check hemoglobin A1c. The patient has historically poorly controlled diabetes with her most recent hemoglobin A1c from over a year ago being greater than 14. Will hold the patient's home glipizide. Patient has pseudo hyponatremia due to hyperglycemia. She may have some mild underlying hyponatremia also from dehydration. Will repeat electrolyte panel in a.m.. Will check TSH and resume home levothyroxine. Will resume home PPI therapy given her history of GERD. MEDICAL DECISION MAKING NARRATIVE -Spoke with the ED provider in detail regarding patient's evaluation, workup and management -Patient seen and examined at bedside -Collaborated with patient's nurse at the bedside in detail and addressed all concerns -Labs, electrolytes, radiology, investigations and test results personally reviewed and interpreted unless otherwise specified -ED/Consult/Nursing/Ancilliary notes on the chart reviewed and appreciated -Spoke with patient at bedside and diagnosis and plan of care was discussed. All questions answered. Quality VTE Prophylaxis VTE prophylaxis: pharmacologic ordered (Lovenox 40 mg subQ daily) Hospitalist [facility] Advance Care Plan I have confirmed that the patient's Advanced Care Plan is present, code status is documented, or surrogate decision maker is listed in patient medical record.: Yes Medication Reconciliation I have utilized all available resources to obtain, update and review the patients current medications (includes all prescriptions, OTC, herbals, cannabis, and nutritional supplements).: Yes
[2025-05-16 05:15] VITALS: BP 115/43; PULSE 78; RESP 16; TEMP 36.1; O2SAT 98
[2025-05-16] MEDS: LEVOTHYROXINE SODIUM 125 MCG TABLET PO (05:49)
[2025-05-16 06:06] LABS: Hematocrit 39.2 % (37.0-47.0); Hemoglobin 12.6 g/dL (12.0-15.0); Immature Granulocyte Percent A 0.3 % (0-0.5); Lymphocytes Absolute Auto 2.45 K/mm3 (0.9-3.2); Mean Corpuscular HGB Conc 32.1 g/dl (32-36); Mean Corpuscular Hemoglobin 27.6 pg (26-34); Mean Corpuscular Volume 86.0 fl (80-100); Nucleated Red Blood Cells Absolute Auto 0.000 K/mm3 (0.0-0.012); Nucleated Red Blood Cells Perc 0.0 % (0.0-0.2); Platelet Count Result 296 k/mm3 (150-375); Red Blood Count 4.56 M/mm3 (4.2-5.4); White Blood Count 8.7 K/mm3 (4.5-10.0)
[2025-05-16 06:30] LABS: Alanine Aminotransferase 23 U/L (6-35); Albumin Level 3.1 g/dL (3.5-5.1); Alkaline Phosphatase 70 U/L (38-126); Anion Gap 6 mmol/L (4-12); Aspartate Amino Transferase 33 U/L (14-36); Bilirubin,Total 0.3 mg/dL (0.2-1.3); Blood Urea Nitrogen 20 mg/dL (7-17); Calcium 8.2 mg/dL (8.4-10.2); Carbon Dioxide 22 mmol/L (22-30); Chloride 106 mmol/L (98-107); Estimated CRCL calculation 75 ml/min; Estimated Glomerular Filt Rate > 60; Glucose 115 mg/dL (65-110); Magnesium 2.0 mg/dL (1.6-2.3); Potassium 3.2 mmol/L (3.4-5.0); Sodium 134 mmol/L (137-145); Total Protein 6.8 g/dL (6.3-8.2)
[2025-05-16 06:41] LABS: Hemoglobin A1C > 14.0 % (<5.7)
[2025-05-16 08:00] VITALS: PULSE 78; RESP 16; O2SAT 98
[2025-05-16] MEDS: VENLAFAXINE HCL XR 75 MG CAP.ER.24H PO (09:37)
[2025-05-16] MEDS: DONEPEZIL HCL 5 MG TABLET PO (09:37)
[2025-05-16] MEDS: SODIUM CHLORIDE 0.9% IV 1,000 ML 100 ML IV CONT (10:15)
[2025-05-16] MEDS: INSULIN ASPART (*BKC) 100 UNITS/ML SUB-Q ×3 (11:51→23:19)
--- NOTE | 2025-05-16 13:14 | PM.IMPN ---
Progress Note: A&P Assessment and Plan (1) Acute diarrhea: Code(s): R19.7 - Diarrhea, unspecified Status: Acute Plan Acute diarrhea -checking stool cultures and C diff. isolation precautions until we rule out c. diff -antibiotics: Rocephin for possible UTI? will re-evaluate tomorrow, h/o klebiella UTI -hypokalemia secondary to diarrhea, potassium 3.2 giving 40mEq KCL -patient received numerous fluid boluses -UTI? suprapubic pain -acute lactic acidosis resolved 2.3->1.4 with IVF -WBC 10.7->8.7 Uncontrolled type 2 diabetes -hemoglobin A1c greater than 14 -will need to start insulin for diabetes management -start on sliding scale insulin, hypoglycemia protocol -holding home glipizide -trend glucose before starting basal bolus insulin Chronic conditions -dementia: Donepezil -hypothyroidism: Levothyroxine -GERD: Protonix -depression: Venlafaxine, trazodone for insomnia, doxepin -osteoarthritis: Holding home Celebrex Diet: Diabetic diet DVT prophylaxis: Lovenox Code status: Full code Disposition: home in >2 days Time Spent With Patient Time: 35 minutes Subjective Date/time seen: 05/16/25 13:14 Interval history: Patient seen examined. She is doing well no new complaints. Lactic acidosis normalized. Hemoglobin A1c>14. She will need placed on a insulin regimen. Replacing potassium, potassium 3.2 given 40 mEq KCL x2. She denies fever, chills, nausea vomiting. She states her diarrhea has improved Review of Systems Review of Systems: 10 point ROS complete, negative other than what is specified in HPI. Exam Narrative: - GENERAL: Pleasant elderly woman in No acute distress - EYES: EOMI. Anicteric. - HENT: Dry oral mucosa, edentulous - LUNGS: Clear to auscultation bilaterally, no wheezing, rhonchi, or rales. - CARDIOVASCULAR: Regular rate and rhythm. - ABDOMEN: Soft, non-tender and non-distended. - EXTREMITIES: Peripheral pulses 2+. Non-tender. - NEUROLOGIC: No focal neurological deficits. CN II-XII grossly intact. - PSYCHIATRIC: Awake, Alert, disoriented. Poor insight Objective Data Vital Signs Vital Signs: Vital Signs - 24 hr 05/15/25 16:56 05/15/25 17:14 05/15/25 17:15 Temperature 37.1 C Pulse Rate 87 83 83 Respiratory Rate 25 H 22 H 23 H Blood Pressure 162/72 H 162/72 H Pulse Oximetry 95 96 96 Oxygen Delivery Room Air 05/15/25 17:30 05/15/25 17:31 05/15/25 17:56 Temperature Pulse Rate 83 83 77 Respiratory Rate 19 22 H 21 H Blood Pressure 154/59 H Pulse Oximetry 96 97 97 Oxygen Delivery 05/15/25 18:10 05/15/25 18:15 05/15/25 18:16 Temperature Pulse Rate 75 75 72 Respiratory Rate 17 23 H 25 H Blood Pressure 161/131 H Pulse Oximetry 98 99 100 Oxygen Delivery 05/15/25 18:30 05/15/25 18:32 05/15/25 18:45 Temperature Pulse Rate 72 73 72 Respiratory Rate 16 16 23 H Blood Pressure 159/53 H Pulse Oximetry 98 99 98 Oxygen Delivery 05/15/25 18:47 05/15/25 19:06 05/15/25 19:15 Temperature Pulse Rate 71 73 71 Respiratory Rate 22 H 20 22 H Blood Pressure 156/70 H Pulse Oximetry 98 100 100 Oxygen Delivery 05/15/25 19:17 05/15/25 19:31 05/15/25 19:32 Temperature Pulse Rate 75 73 72 Respiratory Rate 20 23 H 20 Blood Pressure 148/60 H 127/45 L Pulse Oximetry 100 99 99 Oxygen Delivery 05/15/25 19:46 05/15/25 19:47 05/15/25 20:00 Temperature Pulse Rate 73 74 72 Respiratory Rate 23 H 23 H 23 H Blood Pressure 128/51 L Pulse Oximetry 97 97 99 Oxygen Delivery 05/15/25 20:15 05/15/25 20:17 05/15/25 20:31 Temperature Pulse Rate 70 70 77 Respiratory Rate 23 H 22 H 19 Blood Pressure 147/61 H Pulse Oximetry 98 98 99 Oxygen Delivery 05/15/25 20:45 05/15/25 20:46 05/15/25 21:23 Temperature Pulse Rate 69 69 68 Respiratory Rate 22 H 22 H 22 H Blood Pressure 150/63 H Pulse Oximetry 98 98 98 Oxygen Delivery 05/15/25 21:31 05/15/25 21:32 05/15/25 21:49 Temperature Pulse Rate 66 68 70 Respiratory Rate 23 H 24 H 24 H Blood Pressure 143/62 H Pulse Oximetry 100 99 99 Oxygen Delivery 05/15/25 22:00 05/15/25 22:01 05/15/25 23:02 Temperature 36.2 C L Pulse Rate 78 74 66 Respiratory Rate 21 H 25 H 18 Blood Pressure 156/66 H 148/57 H Pulse Oximetry 98 100 97 Oxygen Delivery 05/16/25 05:15 05/16/25 08:00 Temperature 36.1 C L Pulse Rate 78 78 Respiratory Rate 16 16 Blood Pressure 115/43 L Pulse Oximetry 98 98 Oxygen Delivery Room Air Intake/Output Intake/Output: Intake & Output 05/13/25 05/14/25 05/15/25 05/16/25 23:59 23:59 23:59 23:59 Intake Total 1050 1090 Balance 1050 1090 Meds/Results Medications: Active Medications Generic Name Dose Route Start Last Admin Trade Name Freq PRN Reason Stop Dose Admin Acetaminophen 650 mg 05/16/25 04:46 Acetaminophen 325 Mg Tablet PO Q4H PRN Mild Pain (1-3) or Fever Dextrose 12.5 gm 05/16/25 04:01 Dextrose 50% 25 Gm/50 Ml Syringe IV PUSH PRN PRN Hypoglycemia Protocol Donepezil HCl 5 mg 05/16/25 09:00 05/16/25 09:37 Donepezil Hcl 5 Mg Tablet PO 5 mg DAILY SUDHEER Administration Doxepin HCl 10 mg 05/16/25 05:45 Doxepin Hcl 10 Mg Capsule PO QHS PRN sleep Glucagon 1 mg 05/16/25 04:01 Glucagon For Inj 1 Mg Vial IM PRN PRN Hypoglycemia Protocol Glucose 15 gm 05/16/25 04:01 Glucose Oral Gel 15 Gm Of Glucse In 37.5 Gm Tube PO PRN PRN Hypoglycemia Protocol Dextrose 1,000 mls @ 100 mls/hr 05/16/25 04:01 Dextrose 5% 1,000 Ml IVPB PRN PRN Hypoglycemia Protocol Ceftriaxone Sodium 1 gm/ 50 mls @ 100 mls/hr 05/16/25 21:00 Sodium Chloride IVPB HS SUDHEER Sodium Chloride 1,000 mls @ 100 mls/hr 05/16/25 09:55 05/16/25 10:15 Normal Saline Iv IV CONT 05/16/25 19:54 100 mls/hr .Q10H SUDHEER Administration Insulin Aspart 3 - 6 units 05/16/25 08:00 05/16/25 11:51 Insulin Aspart (*Bkc) 100 Units/Ml SUB-Q 3 units TIDWM [facility] Administration Protocol Levothyroxine Sodium 125 mcg 05/16/25 06:30 05/16/25 05:49 Levothyroxine Sodium 125 Mcg Tablet PO 125 mcg DAILY@0630 [facility] Administration Pantoprazole Sodium 40 mg 05/16/25 21:00 Pantoprazole 40 Mg Tablet PO HS SUDHEER Trazodone HCl 50 mg 05/16/25 04:41 Trazodone Hcl 50 Mg Tablet PO QHS PRN Sleep Venlafaxine HCl 75 mg 05/16/25 08:00 05/16/25 09:37 Venlafaxine Hcl Xr 75 Mg Cap.Er.24h PO 75 mg DAILY@0800 [facility] Administration Radiology Results: ITS Impressions Chest X-Ray 05/15/25 18:16 IMPRESSION: No acute pulmonary findings. Labs Labs: Laboratory Results - last 24 hr 05/15/25 05/15/25 05/15/25 17:38 17:40 17:49 WBC 10.7 H RBC 5.11 Hgb 14.3 Hct 43.2 MCV 84.5 MCH 28.0 MCHC 33.1 RDW 14.1 Plt Count 319 MPV 10.7 H Immature Gran % (Auto) 0.5 Neut % (Auto) 76.9 H Lymph % (Auto) 11.7 L [place] % (Auto) 10.4 H Eos % (Auto) 0.1 Baso % (Auto) 0.4 Lymph # (Auto) 1.25 [place] # (Auto) 1.1 H Eos # (Auto) 0.0 Baso # (Auto) 0.0 Abs Immat Gran (auto) 0.05 H Absolute Neuts (auto) 8.2 H Absolute Nucleated RBC 0.000 Nucleated RBC % 0.0 Sodium 130 L Potassium 4.0 Chloride 96 L Carbon Dioxide 18 L Anion Gap 16 H BUN 24 H Creatinine 0.83 Estim Creat Clear Calc Not Reportable Estimated GFR > 60 Glucose 411 H POC Capillary Glucose Hemoglobin A1c Lactic Acid 2.3 H Calcium 9.4 Magnesium Total Bilirubin 0.9 AST 31 ALT 29 Alkaline Phosphatase 87 Total Creatine Kinase 299 H Total Protein 8.1 Albumin 3.9 Urine Color Yellow Urine Appearance Turbid H Urine pH 5.0 Ur Specific [place] 1.032 Urine Protein 2+ H Urine Glucose (UA) 3+ H Urine Ketones 2+ H Ur Blood (Man) 3+ H Urine Nitrate Negative Urine Bilirubin Negative Urine Urobilinogen 1.0 Add Ur Microanalysis Reviewed Leukocyte Esterase Rfl 2+ H Urine RBC 0-2 Urine WBC >100 H Ur Squamous Epith Cells None seen Urine Bacteria 4+ H Urine Casts 11-05/15/25 05/15/25 05/15/25 20:33 22:19 23:05 WBC RBC Hgb Hct MCV MCH MCHC RDW Plt Count MPV Immature Gran % (Auto) Neut % (Auto) Lymph % (Auto) [place] % (Auto) Eos % (Auto) Baso % (Auto) Lymph # (Auto) [place] # (Auto) Eos # (Auto) Baso # (Auto) Abs Immat Gran (auto) Absolute Neuts (auto) Absolute Nucleated RBC Nucleated RBC % Sodium Potassium Chloride Carbon Dioxide Anion Gap BUN Creatinine Estim Creat Clear Calc Estimated GFR Glucose POC Capillary Glucose 343 H 352 H Hemoglobin A1c Lactic Acid 1.4 Calcium Magnesium Total Bilirubin AST ALT Alkaline Phosphatase Total Creatine Kinase Total Protein Albumin Urine Color Urine Appearance Urine pH Ur Specific [place] Urine Protein Urine Glucose (UA) Urine Ketones Ur Blood (Man) Urine Nitrate Urine Bilirubin Urine Urobilinogen Add Ur Microanalysis Leukocyte Esterase Rfl Urine RBC Urine WBC Ur Squamous Epith Cells Urine Bacteria Urine Casts 05/16/25 05/16/25 05/16/25 05:26 07:36 11:27 WBC 8.7 RBC 4.56 Hgb 12.6 Hct 39.2 MCV 86.0 MCH 27.6 MCHC 32.1 RDW 14.1 Plt Count 296 MPV 10.8 H Immature Gran % (Auto) 0.3 Neut % (Auto) 54.1 Lymph % (Auto) 28.2 [place] % (Auto) 16.4 H Eos % (Auto) 0.5 Baso % (Auto) 0.5 Lymph # (Auto) 2.45 [place] # (Auto) 1.4 H Eos # (Auto) 0.0 Baso # (Auto) 0.0 Abs Immat Gran (auto) 0.03 Absolute Neuts (auto) 4.7 Absolute Nucleated RBC 0.000 Nucleated RBC % 0.0 Sodium 134 L Potassium 3.2 L Chloride 106 Carbon Dioxide 22 Anion Gap 6 BUN 20 H Creatinine 0.65 L Estim Creat Clear Calc 75 Estimated GFR > 60 Glucose 115 H POC Capillary Glucose 166 H 233 H Hemoglobin A1c > 14.0 H Lactic Acid Calcium 8.2 L Magnesium 2.0 Total Bilirubin 0.3 AST 33 ALT 23 Alkaline Phosphatase 70 Total Creatine Kinase Total Protein 6.8 Albumin 3.1 L Urine Color Urine Appearance Urine pH Ur Specific [place] Urine Protein Urine Glucose (UA) Urine Ketones Ur Blood (Man) Urine Nitrate Urine Bilirubin Urine Urobilinogen Add Ur Microanalysis Leukocyte Esterase Rfl Urine RBC Urine WBC Ur Squamous Epith Cells Urine Bacteria Urine Casts Quality VTE Prophylaxis VTE prophylaxis: pharmacologic ordered Hospitalist [facility] Advance Care Plan I have confirmed that the patient's Advanced Care Plan is present, code status is documented, or surrogate decision maker is listed in patient medical record.: Yes Medication Reconciliation I have utilized all available resources to obtain, update and review the patients current medications (includes all prescriptions, OTC, herbals, cannabis, and nutritional supplements).: Yes
[2025-05-16 14:00] VITALS: BP 120/56; PULSE 54; RESP 17; TEMP 36.5; O2SAT 95
[2025-05-16] MEDS: ONDANSETRON INJ 4 MG/2 ML VIAL IV PUSH (16:48)
[2025-05-16] MEDS: POTASSIUM CHLORIDE 20 MEQ ER TABLET 40 MEQ PO (16:49)
[2025-05-16 20:00] VITALS: PULSE 68; RESP 18; O2SAT 95
[2025-05-16 20:07] VITALS: BP 143/54; PULSE 68; RESP 18; TEMP 36.2; O2SAT 95
[2025-05-16] MEDS: cefTRIAXone 1 GM in SODIUM CHLORIDE 0.9% IV 50 ML 100 ML IVPB (21:00)
[2025-05-16] MEDS: PANTOPRAZOLE 40 MG TABLET PO (21:00)
[2025-05-17 04:41] VITALS: BP 121/62; PULSE 61; RESP 18; TEMP 36.2; O2SAT 98
[2025-05-17 05:39] LABS: Hematocrit 38.2 % (37.0-47.0); Hemoglobin 12.3 g/dL (12.0-15.0); Mean Corpuscular HGB Conc 32.2 g/dl (32-36); Mean Corpuscular Hemoglobin 27.8 pg (26-34); Mean Corpuscular Volume 86.2 fl (80-100); Platelet Count Result 296 k/mm3 (150-375); Red Blood Count 4.43 M/mm3 (4.2-5.4); White Blood Count 7.1 K/mm3 (4.5-10.0)
[2025-05-17] MEDS: LEVOTHYROXINE SODIUM 125 MCG TABLET PO (05:41)
[2025-05-17 05:58] LABS: Anion Gap 4 mmol/L (4-12); Blood Urea Nitrogen 14 mg/dL (7-17); Calcium 8.0 mg/dL (8.4-10.2); Carbon Dioxide 23 mmol/L (22-30); Chloride 105 mmol/L (98-107); Estimated CRCL calculation 77 ml/min; Estimated Glomerular Filt Rate > 60; Glucose 269 mg/dL (65-110); Magnesium 1.9 mg/dL (1.6-2.3); Potassium 3.9 mmol/L (3.4-5.0); Sodium 132 mmol/L (137-145)
[2025-05-17] MEDS: VENLAFAXINE HCL XR 75 MG CAP.ER.24H PO (08:25)
[2025-05-17] MEDS: DONEPEZIL HCL 5 MG TABLET PO (08:25)
[2025-05-17] MEDS: ENOXAPARIN 40 MG/0.4 ML SYRINGE SUB-Q (08:25)
[2025-05-17] MEDS: INSULIN ASPART (*BKC) 100 UNITS/ML SUB-Q ×3 (08:27→17:23)
--- NOTE | 2025-05-17 12:56 | P.PNIM_ITS ---
Progress Note: A&P Assessment and Plan (1) UTI (urinary tract infection), bacterial: Code(s): N39.0 - Urinary tract infection, site not specified; A49.9 - Bacterial infection, unspecified Status: Acute Plan Urinary tract infection due to Gram-negative benita Acute diarrhea -checking stool cultures and C diff. isolation precautions until we rule out c. diff -antibiotics: Rocephin for 3 day course, h/o klebiella UTI -urine culture positive for Gram-negative rods -hypokalemia secondary to diarrhea, potassium 3.9 -patient received numerous fluid boluses -suprapubic pain, treating UTI -acute lactic acidosis resolved 2.3->1.4 with IVF -WBC 10.7->8.7 -PT OT consulted Uncontrolled type 2 diabetes -hemoglobin A1c greater than 14 -will need to start insulin for diabetes management -start on sliding scale insulin, hypoglycemia protocol -holding home glipizide -trend glucose before starting basal bolus insulin Chronic conditions -dementia: Donepezil -hypothyroidism: Levothyroxine -GERD: Protonix -depression: Venlafaxine, trazodone for insomnia, doxepin -osteoarthritis: Holding home Celebrex Diet: Diabetic diet DVT prophylaxis: Lovenox Code status: Full code Disposition: home in 1-2 days Time Spent With Patient Time: 35 minutes Subjective Date/time seen: 05/17/25 12:56 Interval history: Patient seen and examined. She is doing well no new complaints. Labs and vitals are all stable within normal limits. She complains of weakness which we will have PT OT evaluate. Urinalysis showing Gram-negative benita, will complete 3 days of Rocephin. She denies fever, chills, nausea vomiting. Her diarrhea is improved. Review of Systems Review of Systems: 10 point ROS complete, negative other th an what is specified in HPI. Exam Narrative: - GENERAL: Pleasant elderly woman in no acute distress - EYES: EOMI. Anicteric. - HENT: moist oral mucosa, edentulous - LUNGS: Clear to auscultation bilateral ly, no wheezing, rhonchi, or rales. - CARDIOVASCULAR: Regular rate and rhyth m. - ABDOMEN: Soft, non-tender and non-dist ended. - EXTREMITIES: Peripheral pulses 2+. No n-tender. - NEUROLOGIC: No focal neurological defi cits. CN II-XII grossly intact. - PSYCHIATRIC: Awake, Alert, disoriented . Poor insight Objective Data Vital Signs Vital Signs: Vital Signs - 24 hr 05/16/25 14:00 05/16/25 20:00 05/16/25 20:07 Temperature 36.5 C 36.2 C L Pulse Rate 54 L 68 68 Respiratory Rate 17 18 18 Blood Pressure 120/56 L 143/54 H Pulse Oximetry 95 95 95 Oxygen Delivery Room Air 05/17/25 04:41 05/17/25 08:20 Temperature 36.2 C L Pulse Rate 61 Respiratory Rate 18 Blood Pressure 121/62 Pulse Oximetry 98 Oxygen Delivery Room Air Intake/Output Intake/Output: Intake & Output 05/14/25 05/15/25 05/16/25 05/17/25 23:59 23:59 23:59 23:59 Intake Total 1050 1880 740 Output Total 250 400 Balance 1050 1630 340 Meds/Results Medications: Active Medications Generic Name Dose Route Start Last Admin Trade Name Freq PRN Reason Stop Dose Admin Acetaminophen 650 mg 05/16/25 04:46 Acetaminophen 325 Mg Tablet PO Q4H PRN Mild Pain (1-3) or Fever Dextrose 12.5 gm 05/16/25 04:01 Dextrose 50% 25 Gm/50 Ml Syringe IV PUSH PRN PRN Hypoglycemia Protocol Donepezil HCl 5 mg 05/16/25 09:00 05/17/25 08:25 Donepezil Hcl 5 Mg Tablet PO 5 mg DAILY SUDHEER Administration Doxepin HCl 10 mg 05/16/25 05:45 Doxepin Hcl 10 Mg Capsule PO QHS PRN sleep Enoxaparin Sodium 40 mg 05/17/25 09:00 05/17/25 08:25 Enoxaparin 40 Mg/0.4 Ml Syringe SUB-Q 40 mg DAILY SUDHEER Administration Glucagon 1 mg 05/16/25 04:01 Glucagon For Inj 1 Mg Vial IM PRN PRN Hypoglycemia Protocol Glucose 15 gm 05/16/25 04:01 Glucose Oral Gel 15 Gm Of Glucse In 37.5 Gm Tube PO PRN PRN Hypoglycemia Protocol Dextrose 1,000 mls @ 100 mls/hr 05/16/25 04:01 Dextrose 5% 1,000 Ml IVPB PRN PRN Hypoglycemia Protocol Ceftriaxone Sodium 1 gm/ 50 mls @ 100 mls/hr 05/16/25 21:00 05/16/25 21:00 Sodium Chloride IVPB 05/18/25 21:29 100 mls/hr HS SUDHEER Administration Insulin Aspart 3 - 6 units 05/16/25 08:00 05/17/25 11:56 Insulin Aspart (*Bkc) 100 Units/Ml SUB-Q 4 units TIDWM SUDHEER Administration Protocol Levothyroxine Sodium 125 mcg 05/16/25 06:30 05/17/25 05:41 Levothyroxine Sodium 125 Mcg Tablet PO 125 mcg DAILY@0630 [facility] Administration Ondansetron HCl 4 mg 05/16/25 16:38 05/16/25 16:48 Ondansetron Inj 4 Mg/2 Ml Vial IV PUSH 4 mg Q6H PRN Administration Nausea And Vomiting Pantoprazole Sodium 40 mg 05/16/25 21:00 05/16/25 21:00 Pantoprazole 40 Mg Tablet PO 40 mg HS SUDHEER Administration Trazodone HCl 50 mg 05/16/25 04:41 05/16/25 21:00 Trazodone Hcl 50 Mg Tablet PO 50 mg QHS PRN Administration Sleep Venlafaxine HCl 75 mg 05/16/25 08:00 05/17/25 08:25 Venlafaxine Hcl Xr 75 Mg Cap.Er.24h PO 75 mg DAILY@0800 [facility] Administration Radiology Results: ITS Impressions Chest X-Ray 05/15/25 18:16 IMPRESSION: No acute pulmonary findings. Labs Labs: Laboratory Results - last 24 hr 05/16/25 05/16/25 05/16/25 16:30 20:06 23:09 WBC RBC Hgb Hct MCV MCH MCHC RDW Plt Count MPV Sodium Potassium Chloride Carbon Dioxide Anion Gap BUN Creatinine Estim Creat Clear Calc Estimated GFR Glucose POC Capillary Glucose 311 H 329 H 354 H Calcium Magnesium 05/17/25 05/17/25 05/17/25 05:14 07:50 11:13 WBC 7.1 RBC 4.43 Hgb 12.3 Hct 38.2 MCV 86.2 MCH 27.8 MCHC 32.2 RDW 14.0 Plt Count 296 MPV 10.8 H Sodium 132 L Potassium 3.9 Chloride 105 Carbon Dioxide 23 Anion Gap 4 BUN 14 D Creatinine 0.63 L Estim Creat Clear Calc 77 Estimated GFR > 60 Glucose 269 H POC Capillary Glucose 260 H 266 H Calcium 8.0 L Magnesium 1.9
[2025-05-17 14:00] VITALS: BP 133/59; PULSE 72; RESP 18; TEMP 36.2; O2SAT 97
[2025-05-17 18:22] VITALS: O2SAT 96
[2025-05-17 20:00] VITALS: PULSE 72; RESP 18; O2SAT 96
[2025-05-17] MEDS: PANTOPRAZOLE 40 MG TABLET PO (20:29)
[2025-05-17] MEDS: cefTRIAXone 1 GM in SODIUM CHLORIDE 0.9% IV 50 ML 100 ML IVPB (20:29)
[2025-05-17 22:00] VITALS: BP 141/67; PULSE 63; RESP 16; TEMP 36.4; O2SAT 96
[2025-05-18 05:46] VITALS: BP 142/49; PULSE 67; RESP 18; TEMP 36.5; O2SAT 95
[2025-05-18] MEDS: LEVOTHYROXINE SODIUM 125 MCG TABLET PO (06:00)
[2025-05-18] MEDS: INSULIN ASPART (*BKC) 100 UNITS/ML SUB-Q ×3 (08:04→16:25)
[2025-05-18] MEDS: ENOXAPARIN 40 MG/0.4 ML SYRINGE SUB-Q (08:07)
[2025-05-18] MEDS: VENLAFAXINE HCL XR 75 MG CAP.ER.24H PO (08:07)
[2025-05-18] MEDS: DONEPEZIL HCL 5 MG TABLET PO (08:07)
--- NOTE | 2025-05-18 11:34 | P.PNIM_ITS ---
Progress Note: A&P Assessment and Plan (1) UTI (urinary tract infection), bacterial: Code(s): N39.0 - Urinary tract infection, site not specified; A49.9 - Bacterial infection, unspecified Status: Acute Plan Urinary tract infection due to Gram-negative benita Acute diarrhea -antibiotics: Rocephin to complete 3 day course this evening, h/o klebiella UTI, last dose tonight -urine culture positive for klebsiella, rocephin is appropriate -hypokalemia secondary to diarrhea, potassium replaced -patient received numerous fluid boluses -suprapubic pain, treating UTI -acute lactic acidosis resolved 2.3->1.4 with IVF -WBC 10.7->8.7 -PT OT consulted Uncontrolled type 2 diabetes -hemoglobin A1c greater than 14 -will need to start insulin for diabetes management -start on sliding scale insulin, hypoglycemia protocol -holding home glipizide -trend glucose before starting basal bolus insulin Chronic conditions -Dementia: Donepezil -hypothyroidism: Levothyroxine -GERD: Protonix -depression: Venlafaxine, trazodone for insomnia, doxepin -osteoarthritis: Holding home Celebrex Diet: Diabetic diet DVT prophylaxis: Lovenox Code status: Full code Disposition: home with home health tomorrow Time Spent With Patient Time: 35 minutes Subjective Date/time seen: 05/18/25 11:34 Interval history: Patient seen examined. She is doing well no new complaints. Urine culture growing Klebsiella sensitive to cephalosporin. Will complete 3rd dose of Rocephin this evening. Anticipate discharge tomorrow. Patent to see PT OT. She will likely need home health on discharge. She denies fever, chills, nausea vomiting, diarrhea. She endorses generalized weakness. Review of Systems Review of Systems: 10 point ROS complete, negative other th an what is specified in HPI. Exam Narrative: - GENERAL: Pleasant elderly woman in no acute distress - EYES: EOMI. Anicteric. - HENT: moist oral mucosa, edentulous - LUNGS: Clear to auscultation bilateral ly, no wheezing, rhonchi, or rales. - CARDIOVASCULAR: Regular rate and rhyth m. - ABDOMEN: Soft, non-tender and non-dist ended. - EXTREMITIES: Peripheral pulses 2+. No n-tender. - NEUROLOGIC: No focal neurological defi cits. CN II-XII grossly intact. - PSYCHIATRIC: Awake, Alert, disoriented . Objective Data Vital Signs Vital Signs: Vital Signs - 24 hr 05/17/25 14:00 05/17/25 18:22 05/17/25 20:00 Temperature 36.2 C L Pulse Rate 72 72 Respiratory Rate 18 18 Blood Pressure 133/59 L Pulse Oximetry 97 96 96 Oxygen Delivery Room Air Room Air 05/17/25 22:00 05/18/25 05:46 05/18/25 09:47 Temperature 36.4 C 36.5 C Pulse Rate 63 67 Respiratory Rate 16 18 Blood Pressure 141/67 H 142/49 H Pulse Oximetry 96 95 Oxygen Delivery Room Air Intake/Output Intake/Output: Intake & Output 05/15/25 05/16/25 05/17/25 05/18/25 23:59 23:59 23:59 23:59 Intake Total 1050 1930 1620 436 Output Total 250 900 650 Balance 1050 1680 720 -214 Meds/Results Medications: Active Medications Generic Name Dose Route Start Last Admin Trade Name Freq PRN Reason Stop Dose Admin Acetaminophen 650 mg 05/16/25 04:46 Acetaminophen 325 Mg Tablet PO Q4H PRN Mild Pain (1-3) or Fever Dextrose 12.5 gm 05/16/25 04:01 Dextrose 50% 25 Gm/50 Ml Syringe IV PUSH PRN PRN Hypoglycemia Protocol Donepezil HCl 5 mg 05/16/25 09:00 05/18/25 08:07 Donepezil Hcl 5 Mg Tablet PO 5 mg DAILY SUDHEER Administration Doxepin HCl 10 mg 05/16/25 05:45 Doxepin Hcl 10 Mg Capsule PO QHS PRN sleep Enoxaparin Sodium 40 mg 05/17/25 09:00 05/18/25 08:07 Enoxaparin 40 Mg/0.4 Ml Syringe SUB-Q 40 mg DAILY SUDHEER Administration Glucagon 1 mg 05/16/25 04:01 Glucagon For Inj 1 Mg Vial IM PRN PRN Hypoglycemia Protocol Glucose 15 gm 05/16/25 04:01 Glucose Oral Gel 15 Gm Of Glucse In 37.5 Gm Tube PO PRN PRN Hypoglycemia Protocol Dextrose 1,000 mls @ 100 mls/hr 05/16/25 04:01 Dextrose 5% 1,000 Ml IVPB PRN PRN Hypoglycemia Protocol Ceftriaxone Sodium 1 gm/ 50 mls @ 100 mls/hr 05/16/25 21:00 05/18/25 02:17 Sodium Chloride IVPB 05/18/25 21:29 Infused HS SUDHEER Infusion Insulin Aspart 3 - 6 units 05/16/25 08:00 05/18/25 08:04 Insulin Aspart (*Bkc) 100 Units/Ml SUB-Q 4 units TIDWM SUDHEER Administration Protocol Levothyroxine Sodium 125 mcg 05/16/25 06:30 05/18/25 06:00 Levothyroxine Sodium 125 Mcg Tablet PO 125 mcg DAILY@0630 [facility] Administration Ondansetron HCl 4 mg 05/16/25 16:38 05/16/25 16:48 Ondansetron Inj 4 Mg/2 Ml Vial IV PUSH 4 mg Q6H PRN Administration Nausea And Vomiting Pantoprazole Sodium 40 mg 05/16/25 21:00 05/17/25 20:29 Pantoprazole 40 Mg Tablet PO 40 mg HS SUDHEER Administration Trazodone HCl 50 mg 05/16/25 04:41 05/17/25 20:29 Trazodone Hcl 50 Mg Tablet PO 50 mg QHS PRN Administration Sleep Venlafaxine HCl 75 mg 05/16/25 08:00 05/18/25 08:07 Venlafaxine Hcl Xr 75 Mg Cap.Er.24h PO 75 mg DAILY@0800 [facility] Administration Radiology Results: ITS Impressions Chest X-Ray 05/15/25 18:16 IMPRESSION: No acute pulmonary findings. Labs Labs: Laboratory Results - last 24 hr 05/16/25 05/17/25 05/17/25 04:54 16:52 20:52 POC Capillary Glucose 119 H 303 H 306 H 05/18/25 07:39 POC Capillary Glucose 278 H
[2025-05-18 13:57] VITALS: BP 126/53; PULSE 65; RESP 18; TEMP 36.3; O2SAT 96
[2025-05-18] MEDS: cefTRIAXone 1 GM in SODIUM CHLORIDE 0.9% IV 50 ML 100 ML IVPB (20:57)
[2025-05-18] MEDS: PANTOPRAZOLE 40 MG TABLET PO (20:58)
[2025-05-18 21:01] VITALS: BP 143/56; PULSE 58; RESP 18; TEMP 36.4; O2SAT 96
[2025-05-19 05:43] VITALS: BP 149/63; PULSE 62; RESP 18; TEMP 36.8; O2SAT 95
[2025-05-19] MEDS: LEVOTHYROXINE SODIUM 125 MCG TABLET PO (06:13)
[2025-05-19 08:02] LABS: Hematocrit 40.8 % (37.0-47.0); Hemoglobin 13.0 g/dL (12.0-15.0); Immature Granulocyte Percent A 0.8 % (0-0.5); Lymphocytes Absolute Auto 2.32 K/mm3 (0.9-3.2); Mean Corpuscular HGB Conc 31.9 g/dl (32-36); Mean Corpuscular Hemoglobin 27.6 pg (26-34); Mean Corpuscular Volume 86.6 fl (80-100); Nucleated Red Blood Cells Absolute Auto 0.000 K/mm3 (0.0-0.012); Nucleated Red Blood Cells Perc 0.0 % (0.0-0.2); Platelet Count Result 312 k/mm3 (150-375); Red Blood Count 4.71 M/mm3 (4.2-5.4); White Blood Count 7.4 K/mm3 (4.5-10.0)
[2025-05-19] MEDS: VENLAFAXINE HCL XR 75 MG CAP.ER.24H PO (08:28)
[2025-05-19] MEDS: ENOXAPARIN 40 MG/0.4 ML SYRINGE SUB-Q (08:28)
[2025-05-19] MEDS: DONEPEZIL HCL 5 MG TABLET PO (08:28)
[2025-05-19] MEDS: INSULIN ASPART (*BKC) 100 UNITS/ML SUB-Q ×2 (08:29→11:20)
[2025-05-19 08:32] LABS: Alanine Aminotransferase 32 U/L (6-35); Albumin Level 3.3 g/dL (3.5-5.1); Alkaline Phosphatase 76 U/L (38-126); Anion Gap 5 mmol/L (4-12); Aspartate Amino Transferase 33 U/L (14-36); Bilirubin,Total 0.4 mg/dL (0.2-1.3); Blood Urea Nitrogen 8 mg/dL (7-17); Calcium 7.9 mg/dL (8.4-10.2); Carbon Dioxide 25 mmol/L (22-30); Chloride 102 mmol/L (98-107); Estimated CRCL calculation 73 ml/min; Estimated Glomerular Filt Rate > 60; Glucose 413 mg/dL (65-110); Potassium 3.9 mmol/L (3.4-5.0); Sodium 132 mmol/L (137-145); Total Protein 6.9 g/dL (6.3-8.2)
--- NOTE | 2025-05-19 10:27 | PM.DS ---
DS: Admitting Diagnosis Discharge Date 05/19/25 Admitting Diagnosis UTI, diarrhea, altered mental status DS: Discharge Diagnosis Discharge Diagnosis (1) UTI (urinary tract infection), bacterial: Code(s): N39.0 - Urinary tract infection, site not specified; A49.9 - Bacterial infection, unspecified Status: Acute DS: Summary Hospital Course Reason for hospitalization: UTI, altered mental status Hospital Course: Patient is 74-year-old female with past medical history of dementia, type 2 diabetes, hypothyroidism, GERD, frequent UTIs who presents to ED with complaints of confusion and diarrhea on 05/16. Apparently she was more confused than baseline. She does have known dementia. She was found to have pansensitive Klebsiella pneumoniae UTI treated with 3 days of Rocephin. Her diarrhea resolved, and her mentation went back to baseline. She worked with Physical therapy with recommendation for home health PT and OT. [id number] done 05/19/25. With her dementia she will have difficulty going to outpatient appointments. She will benefit from home health PT and OT for her debility. She was hospitalized from 05/16-05/19. At time of discharge her labs are stable, vitals stable, patient is stable for discharge home. She will follow-up with PCP in 1 week. Status at Discharge Cognitive/behavioral status at discharge: Baseline Time Spent with Patient Time attestation: Total time spent providing and/or coordinating discharge services: 35 minutes Exam Narrative: - GENERAL: Pleasant elderly woman in no acute distress - EYES: EOMI. Anicteric. - HENT: moist oral mucosa, edentulous - LUNGS: Clear to auscultation bilaterally, no wheezing, rhonchi, or rales. - CARDIOVASCULAR: Regular rate and rhythm. - ABDOMEN: Soft, non-tender and non-distended. - EXTREMITIES: Peripheral pulses 2+. Non-tender. - NEUROLOGIC: No focal neurological deficits. CN II-XII grossly intact. - PSYCHIATRIC: Awake, Alert, oriented x2 DS: Data Data Completed and Pending Labs on day of discharge: Labs from last 24 hours 05/19/25 05/19/25 05/18/25 07:57 07:43 20:40 WBC 7.4 RBC 4.71 Hgb 13.0 Hct 40.8 MCV 86.6 MCH 27.6 MCHC 31.9 L RDW 14.1 Plt Count 312 MPV 9.8 Immature Gran % (Auto) 0.8 H Neut % (Auto) 57.3 Lymph % (Auto) 31.2 [place] % (Auto) 9.2 H Eos % (Auto) 1.1 Baso % (Auto) 0.4 Lymph # (Auto) 2.32 [place] # (Auto) 0.7 H Eos # (Auto) 0.1 Baso # (Auto) 0.0 Abs Immat Gran (auto) 0.06 H Absolute Neuts (auto) 4.3 Absolute Nucleated RBC 0.000 Nucleated RBC % 0.0 Sodium 132 L Potassium 3.9 Chloride 102 Carbon Dioxide 25 Anion Gap 5 BUN 8 D Creatinine 0.67 L Estim Creat Clear Calc 73 Estimated GFR > 60 Glucose 413 H POC Capillary Glucose 390 H 271 H Calcium 7.9 L Total Bilirubin 0.4 AST 33 ALT 32 Alkaline Phosphatase 76 Total Protein 6.9 Albumin 3.3 L 05/18/25 05/18/25 16:19 11:26 WBC RBC Hgb Hct MCV MCH MCHC RDW Plt Count MPV Immature Gran % (Auto) Neut % (Auto) Lymph % (Auto) [place] % (Auto) Eos % (Auto) Baso % (Auto) Lymph # (Auto) [place] # (Auto) Eos # (Auto) Baso # (Auto) Abs Immat Gran (auto) Absolute Neuts (auto) Absolute Nucleated RBC Nucleated RBC % Sodium Potassium Chloride Carbon Dioxide Anion Gap BUN Creatinine Estim Creat Clear Calc Estimated GFR Glucose POC Capillary Glucose 306 H 290 H Calcium Total Bilirubin AST ALT Alkaline Phosphatase Total Protein Albumin Imaging Radiologist's impression: CXR 05/15 IMPRESSION: No acute pulmonary findings. Discharge Plan Discharge Attending physician on discharge: Elena Perea Discharging Clinician: Elena Perea Anticipated Discharge Date/Time: 05/19/25 10:26 Patient Disposition: Home with Home Health Service Activity: as tolerated Diet: diabetic Discharge Instructions: Care Coordination: [facility] to follow patient for PT/OT. [facility] will call patient to set up admission appointment. Their contact #[phone] You have completed antibiotics rocephin for klebsiella UTI. Please follow-up with the PCP in 1 week. Patient Instructions: Antibiotic Form Patient Language: Scottish Stand Alone Forms: General Discharge Information Follow-up/Referrals: Shaji,Daniel E., [facility] [Primary Care Provider, Internal Medicine] - 1 Week Discharge Medications: Continued venlafaxine [Effexor XR] 75 mg capsule,extended release 24hr 75 mg PO DAILY trazodone 50 mg tablet 50 mg PO QHS PRN (Reason: sleep) donepezil 5 mg tablet 5 mg PO DAILY doxepin 6 mg tablet 6 mg PO QHS PRN (Reason: sleep) Qty: 90 0RF rabeprazole 20 mg tablet,delayed release (DR/EC) 20 mg PO HS Qty: 90 2RF glipizide 10 mg tablet extended release 24hr 10 mg PO DAILY Qty: 90 1RF celecoxib 200 mg capsule 200 mg PO DAILY Qty: 90 1RF Rx Instructions: Take with food levothyroxine 125 mcg tablet 125 mcg PO DAILY Qty: 90 2RF Date of admission: 05/15/25 21:21 Primary Care Provider: Daniel Girard Admitting Provider: Dayan Rene Attending physician on admission: Dayan Rene Condition: Stable Hospitalist MIPS Heart Failure (Exclusion) Patient has history of Heart Transplant or Left Ventricular Assistive Device?: No IF YES, STOP HERE Heart Failure (Qualifier) Patient has current or prior documentation of LVEF less than or equal to 40%, or mod/servere depressed LVSF?: No IF NO, STOP HERE
[2025-05-19 13:20] VITALS: BMI 30.2
--- NOTE | 2025-05-26 14:28 | PCCDE ---
05/26/21: DM educator courtesy call attempted - message left including both DM educators call back numbers.
== END 2025-05-19 14:23 | disposition home health service (06) | DRG 689 ==
LOC: ANHED 19:57 → ANH3MEDSUR 21:53
PROVIDERS: Emergency Medicine; Admitting Provider Internal Medicine; Emergency Provider Student in an Organized Health Care Education/Training Program; PCP Nurse Practitioner; Visit Provider Student in an Organized Health Care Education/Training Program
DX: N39.0 Urinary tract infection, site not specified (principal); G93.41 Metabolic encephalopathy; E87.1 Hypo-osmolality and hyponatremia; E87.21 Acute metabolic acidosis; F03.90 Unspecified dementia, unspecified severity, without behavioral disturbance, psychotic disturbance, mood disturbance, and anxiety; B96.1 Klebsiella pneumoniae [K. pneumoniae] as the cause of diseases classified elsewhere; K21.9 Gastro-esophageal reflux disease without esophagitis; E11.65 Type 2 diabetes mellitus with hyperglycemia; R19.7 Diarrhea, unspecified; E03.9 Hypothyroidism, unspecified; I10 Essential (primary) hypertension; E78.5 Hyperlipidemia, unspecified; D72.829 Elevated white blood cell count, unspecified; E86.0 Dehydration; E87.6 Hypokalemia; M19.90 Unspecified osteoarthritis, unspecified site; F32.A Depression, unspecified; Z90.49 Acquired absence of other specified parts of digestive tract
CPT/HCPCS: 36415; 71045; 80048; 80053; 81001; 82550; 82948; 83036; 83605; 83735; 85025; 85027; 87086; 87186; 93005; 96361; 96365; 97110; 97116; 97161; 97165; 97530; 97535; 99285; A9270; J0696; J1650; J1815; J2405; J7030